=== PATIENT | male | born 1940 | race Caucasian/White ===

== ENCOUNTER 2018-01-23 08:03 | Day surgery (SDC) | payer MEDICARE, BC ==
[~2018-01-23 08:03] MED LIST: Lactated Ringers 1,000 ML IV SCH; Sodium Chloride 0.9% 10 ML Syringe FLUSH PRN; Sodium Chloride 0.9% 2.5 ML Syringe FLUSH PRN; ceFAZolin 1 GM in Premix Bag 1 BAG IV ONE
[2018-01-23] MEDS ORDERED: fentaNYL 100 MCG/2 ML SDV ONE (08:25)
[2018-01-23] MEDS ORDERED: Midazolam 1 MG/ML 2 ML SDV ONE (08:25)
[2018-01-23] MEDS ORDERED: Propofol 200 MG/20 ML SDV ONE (08:25)
--- NOTE | 2018-01-23 08:50 | PCM.PREANE ---
Preanesthetic Assessment - Anesthesia/Transfusion/Family Hx Anesthesia History: Prior Anesthesia Without Reaction Family History of Anesthesia Reaction: No Transfusion History: No Prior Transfusion(s) Intubation History: Unknown - Review of Systems General: No Symptoms Pulmonary: No Symptoms, Other (hoarsness, minimal stridor) Cardiovascular: No Symptoms Gastrointestinal: No Symptoms Neurological: No Symptoms Other: Reports: None - Physical Assessment NPO Status Date: 01/22/18 NPO Status Time: 22:00 O2 Sat by Pulse Oximetry: 97 Respiratory Rate: 12 Vital Signs: Last Vital Signs Temp Pulse 72 01/23/18 08:15 Resp 12 01/23/18 08:15 BP 167/76 H 01/23/18 08:15 Pulse Ox 97 01/23/18 08:15 Height: 1.78 m Weight: 63.957 kg ASA Class: 3 Mental Status: Alert & Oriented x3 Airway Class: Mallampati = 2 Dentition: Reports: Dentures (dentures) Thyro-Mental Finger Breadths: 3 Mouth Opening Finger Breadths: 2 ROM/Head Extension: Limited/Partial Lungs: Clear to Auscultation, Normal Respiratory Effort Cardiovascular: Regular Rate, Regular Rhythm - Allergies Allergies/Adverse Reactions: Allergies Allergy/AdvReac Type Severity Reaction Status Date / Time methylprednisolone Allergy Rash Verified 01/17/18 13:53 - Blood Blood Available: No - Anesthesia Plan Pre-Op Medication Ordered: None - Acknowledgements Anesthesia Type Planned: MAC Pt an Appropriate Candidate for the Planned Anesthesia: Yes Alternatives and Risks of Anesthesia Discussed w Pt/Guardian: Yes Pt/Guardian Understands and Agrees with Anesthesia Plan: Yes PreAnesthesia Questionnaire HEENT History: Other HEENT History: top denture Cardiovascular History: Reports: None Respiratory History: Reports: None Other Respiratory History: hoarse voice Gastrointestinal History: Reports: Other (See Below) (Peg tube in place) Other Gastrointestinal History: acid reflux Genitourinary History: Reports: BPH Musculoskeletal History: Reports: None Neurological History: Reports: None Psychiatric History: Reports: None Endocrine/Metabolic History: Reports: None Hematologic History: Reports: None Immunologic History: Reports: None Oncologic (Cancer) History: Reports: Squamous Cell Carcinoma, Other (See Below) Other Oncologic History: laryngeal cancer, s/p excision of vocal cord lesion, chemo and radiation therapy, as well as tracheostomy (stoma removed 6 weeks ago - not healed yed) Dermatologic History: Reports: None - Infectious Disease History Infectious Disease History: Reports: Measles - Past Surgical History Head Surgeries/Procedures: Reports: None Other HEENT Surgeries/Procedures: hx of insertion of tracheostomy tube for laryngeal cancer Cardiovascular Surgical History: Reports: Other (See Below) Other Cardiovascular Surgeries/Procedures: insertion of right Port-a-Cath - SUBSTANCE USE Smoking Status *Q: Never Smoker Tobacco Use Within Last Twelve Months: No Second Hand Smoke Exposure: No Recreational Drug Use History: No - HOME MEDS Home Medications: Home Meds . [No Known Home Meds] 01/17/18 [History] - CURRENT (IN HOUSE) MEDS Current Meds: Current Medications Lactated Ringer's (Ringers, Lactated) 1,000 mls @ 125 mls/hr IV ASDIRECTED CORINA Last Admin: 01/23/18 08:28 Dose: 125 mls/hr Sodium Chloride (Saline Flush) 10 ml FLUSH ASDIRECTED PRN PRN Reason: Keep Vein Open Sodium Chloride (Saline Flush) 2.5 ml FLUSH ASDIRECTED PRN PRN Reason: Keep Vein Open Discontinued Medications Fentanyl (Sublimaze) Confirm Administered Dose 100 mcg .ROUTE .STK-MED ONE Stop: 01/23/18 08:26 Cefazolin Sodium/Dextrose 1 gm (/ Premix) 50 mls @ 100 mls/hr IV ONETIME ONE Stop: 01/22/18 17:08 Cefazolin Sodium/Dextrose (Ancef) Confirm Administered Dose 50 mls @ as directed .ROUTE .STK-MED ONE Stop: 01/23/18 08:27 Lidocaine HCl (Xylocaine-Mpf 1%) Confirm Administered Dose 5 ml .ROUTE .STK-MED ONE Stop: 01/23/18 08:27 Midazolam HCl (Versed 1 Mg/Ml) Confirm Administered Dose 2 mg .ROUTE .STK-MED ONE Stop: 01/23/18 08:26 Propofol (Diprivan 20 Ml) Confirm Administered Dose 200 mg .ROUTE .STK-MED ONE Stop: 01/23/18 08:26
[2018-01-23] MEDS ORDERED: Lidocaine 1% 20 ML MDV ONE (11:15)
[2018-01-23] MEDS ORDERED: Bupivacaine 0.5% 10 ML SDV ONE (11:17)
--- NOTE | 2018-01-23 11:52 | PCM.OPNOTE ---
- General Post-Op/Procedure Note Date of Surgery/Procedure: 01/23/18 Operative Procedure(s): Removal right port a cath, removal feeding tube Findings: Right intact port, feeding tube intact Pre Op Diagnosis: Removal port, feeding tube Post-Op Diagnosis: same Anesthesia Technique: MAC Primary Surgeon: Stephany Foreman Condition: Good
--- NOTE | 2018-01-23 12:39 | PCM48HPAN ---
Post Anesthesia Note - EVALUATION WITHIN 48HRS OF ANESTHETIC Vital Signs in Normal Range: Yes Patient Participated in Evaluation: Yes Respiratory Function Stable: Yes Airway Patent: Yes Cardiovascular Function Stable: Yes Hydration Status Stable: Yes Pain Control Satisfactory: Yes Nausea and Vomiting Control Satisfactory: Yes Mental Status Recovered: Yes Resp Rate: 10 - COMMENTS/OBSERVATIONS Free Text/Narrative:: no anesthesia problems
[2018-01-23 13:46] VITALS: BP 165/76
--- NOTE | 2018-01-23 20:26 | OR ---
SURGEON: CHESTER MOTTA MD DATE OF PROCEDURE: 01/23/2018 PREOPERATIVE DIAGNOSIS: Squamous cell cancer of the head and neck. POSTOPERATIVE DIAGNOSIS: Squamous cell cancer of the head and neck. PROCEDURE PERFORMED: Removal of Port-A-Cath and percutaneous endoscopically placed gastrostomy tube. ANESTHESIA: MAC. FLUIDS: See anesthesia record. ESTIMATED BLOOD LOSS: 5 mL. FINDINGS: Intact right IJ Port-A-Cath and gastrostomy tube. COMPLICATIONS: None. INDICATIONS: The patient is a 77-year-old gentleman, who I previously placed a Port-A-Cath and feeding tube in. He has done with this treatments and would now like to have his Port-A-Cath and feeding tube removed. The patient and I discussed the procedure as well as expected perioperative course. We discussed the risks including bleeding, infection, or damage to surrounding structures. The patient verbalized understanding and wishes to proceed. PROCEDURE IN DETAIL: The patient was brought into the OR, placed on the OR table in supine position. A time-out was completed verifying the patient's name, age, date of , allergies, and procedure to be performed. Monitored anesthesia care was induced. The chest and abdomen were prepped and draped in the usual standard fashion. I anesthetized the skin overlying the right anterior chest Port-A-Cath device with 1% lidocaine plain. A #15 blade was used to open up his previous incision. I used cautery to dissect down to the level of the Port-A-Cath. The port was surrounded in a dense scar capsule. This was taken down with a combination of cautery and sharp dissection with Metzenbaum scissors. There were 3 sutures that were holding this catheter in place. These were sharply incised. Once all the scar tissue had been taken down, gentle pressure was applied to the catheter and it came out without difficulty. It was inspected and found to be intact. Hemostasis in the wound was achieved using cautery. The wound was then closed with interrupted 3-0 Vicryl sutures in the subcutaneous fat layer and a running 4-0 Monocryl stitch in the subcuticular space. Steri-Strips and sterile dressings were applied. I then turned my attention to the feeding tube site. Gentle pressure was applied to the feeding tube and it was pulled out through the abdominal wall. Vaseline gauze and a dressing were applied. The patient tolerated the procedure well and was taken to PACU in stable condition. SPRING / DEREK /[id number]
== END 2018-01-23 12:55 | disposition home or self-care (01) ==
LOC: MW.SDS 08:03
PROVIDERS: ATTEND Surgery
DX: Z45.2 Encounter for adjustment and management of vascular access device (principal); N40.0 Benign prostatic hyperplasia without lower urinary tract symptoms; K21.9 Gastro-esophageal reflux disease without esophagitis; Z85.21 Personal history of malignant neoplasm of larynx; Z92.21 Personal history of antineoplastic chemotherapy; Z92.3 Personal history of irradiation; Z88.8 Allergy status to other drugs, medicaments and biological substances; Z88.5 Allergy status to narcotic agent; Z80.8 Family history of malignant neoplasm of other organs or systems; Z82.3 Family history of stroke; Z98.890 Other specified postprocedural states
CPT/HCPCS: 36590; J0690; J2250; J3010; J7120; 00400; 88300; J2704

== ENCOUNTER 2021-10-06 12:39 | Inpatient (IN) | payer MEDICARE, BC ==
[2021-10-06] MEDS ORDERED: Sodium Chloride 0.9% 2.5 ML Syringe FLUSH PRN (12:46)
[2021-10-06] MEDS ORDERED: Sodium Chloride 0.9% 10 ML Syringe FLUSH PRN (12:46)
[2021-10-06] MEDS ORDERED: Sodium Chloride 0.9% 1,000 ML IV ONE ×3 (12:48→14:12)
--- NOTE | 2021-10-06 12:50 | EDM.PDOC ---
ED HPI GENERAL MEDICAL PROBLEM - General Stated Complaint: FELL Time Seen by Provider: 10/06/21 12:46 - History of Present Illness INITIAL COMMENTS - FREE TEXT/NARRATIVE: History of present illness: [] The historian is the son. The son is from [place] and came to see the father for the first time in 2 weeks today and found him on the bathroom floor with blood on the floor and some bleeding from his left forehead. 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 His [id number] used to check in on him but 2 weeks ago they had a and the son says this patient was at the and the son attended by remote telemetry conference. The son has not seen or heard from the father since. The patient can remember that he was on the bathroom floor but he is unsure when he fell or how he got there. The son says the patient is responsible for taking care of himself. Usually ambulates. He has not driven for quite some time. Review of systems: As per history of present illness and below otherwise all systems reviewed and negative. Past medical history: As per history of present illness and as reviewed below otherwise noncontributory. Surgical history: As per history of present illness and as reviewed below otherwise noncontributory. Social history: No reported history of drug or alcohol abuse. Family history: As per history of present illness and as reviewed below otherwise noncontributory. Physical exam: Constitutional - well developed, well-nourished and in no acute distress HEENT - normocephalic, swelling right eyelid. Abrasion left forehead. Multiple small abrasions and contusions about the head.- external nose and mouth normal - no mass in neck and no JVD - mucosae moist EYES - full EOM, PERRL, no icterus - no evidence of inflammation, injection, or drainage Respiratory - no respiratory distress, equal bilateral expansion, lungs clear to auscultation and no abnormal lung sounds Cardiovascular - Regular Rhythm with S1 and S2 appreciated and no murmur, gallop or rub. GI - abdomen soft without distension or organomegaly - normal bowel sounds - no guard or rebound Musculoskeletal no gross deformity of long bones or joints - no tenderness, swelling or edema Neurologic - Alert and disoriented- CN II-XII grossly intact - motor sensory and coordination symmetrical but movements are slow and weak. Psychiatric - appropriate mood and affect with normal thought content Hematologic - No petechiae or purpura - mucosa appropriate color and sclera not pale - normal nail bed color and refill Integument -skin turgor normal. Deep decubitus ulcer 3 x 2 cm on the left ischial tuberosity area which does not appear infected. Multiple bruises about the extremities. Diagnostics: [] Therapeutics: [] Impression: [] Plan: [] Definitive disposition and diagnosis as appropriate pending reevaluation and review of above. - Related Data Allergies Allergy/AdvReac Type Severity Reaction Status Date / Time methylprednisolone Allergy Rash Verified 10/06/21 13:39 Home Meds: Home Meds Dicyclomine [Bentyl] 10 mg PO DAILY 10/06/21 [History] Levothyroxine Sodium [Levothyroxine] 75 mcg PO DAILY 10/06/21 [History] Tamsulosin HCl 0.4 mg PO DAILY 10/06/21 [History] Past Medical History HEENT History: Reports: Other (See Below) Other HEENT History: wears glasses, has upper denture Cardiovascular History: Reports: None Respiratory History: Reports: None Other Respiratory History: hoarse voice Gastrointestinal History: Reports: Other (See Below) (Peg tube in place) Other Gastrointestinal History: acid reflux Genitourinary History: Reports: Renal Calculus Other Genitourinary History: currently has multiple stones Musculoskeletal History: Reports: None Neurological History: Reports: None Psychiatric History: Reports: None Endocrine/Metabolic History: Reports: None Hematologic History: Reports: None Immunologic History: Reports: None Oncologic (Cancer) History: Reports: Other (See Below) Other Oncologic History: 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 Dermatologic History: Reports: None - Infectious Disease History Infectious Disease History: Reports: Measles - Past Surgical History Cardiovascular Surgical History: Reports: Other (See Below) Other Cardiovascular Surgeries/Procedures: hx of throat cancer- had port-a-cath placed and removed Respiratory Surgical History: Reports: Tracheostomy Other Respiratory Surgeries/Procedures: hx of throat cancer- trach has been removed GI Surgical History: Reports: Other (See Below) Other GI Surgeries/Procedures: hx of PEG tube insertion- has been removed Social & Family History - Family History Family Medical History: No Pertinent Family History ED ROS GENERAL - Review of Systems Review Of Systems: Comprehensive ROS is negative, except as noted in HPI. ED EXAM, GENERAL - Physical Exam Exam: See Below Free Text/Narrative:: My physical exam is in the HPI #1 Interpretation EKG Interpretation Comments: KG done 10/06/2021 at 12:56 PM shows sinus rhythm heart rate 94 IA was 136 QT duration 461 axis -60 probable left atrial enlargement left axis deviation QRS ST and T are otherwise unremarkable no prior for comparison impression no acute injury Course - Vital Signs Text/Narrative:: This patient was seen and evaluated during the 2019 SARS-CoV-2 novel coronavirus pandemic period. Community viral transmission is ongoing at time of this encounter and the emergency department is operating under pandemic response procedures. Due to a high probability of clinically significant, life threatening deterioration, the patient required my highest level of preparedness to intervene emergently and I personally spent this critical care time directly and personally managing the patient. This critical care time included obtaining a history; examining the patient; pulse oximetry; ordering and review of studies; arranging urgent treatment with development of a management plan; evaluation of patient's response to treatment; frequent reassessment; and, discussions with other providers. This critical care time was performed to assess and manage the high probability of imminent, life-threatening deterioration that could result in multi-organ failure. It was exclusive of separately billable procedures and treating other patients and teaching time. 45 minutes Last Recorded V/S: Last Vital Signs Temp 37.3 C 10/06/21 12:39 Pulse 92 10/06/21 15:30 Resp 20 10/06/21 12:39 BP 113/65 10/06/21 14:46 Pulse Ox 96 10/06/21 15:30 - Orders/Labs/Meds Orders: Active Orders 24 hr Category Date Time Status Cardiac Monitoring [RC] . DIRECTED Care 10/06/21 12:46 Active Larson Catheter Insertion [Insert Urinary Catheter] [OM. Care 10/06/21 14:45 Ordered PC] Q24H Intake and Output Strict [RC] ASDIRECTED Care 10/06/21 14:36 Active Pulse Oximetry [RC] ASDIRECTED Care 10/06/21 12:46 Active Urinary Catheter Assessment [RC] ASDIRECTED Care 10/06/21 14:36 Active CULTURE BLOOD [BC] Stat Lab 10/06/21 13:01 Results CULTURE BLOOD [BC] Stat Lab 10/06/21 13:10 Results CULTURE URINE [MREF] Stat Lab 10/06/21 14:50 Received Sodium Chloride 0.9% [Saline Flush] Med 10/06/21 12:46 Active 10 ml FLUSH ASDIRECTED PRN Sodium Chloride 0.9% [Saline Flush] Med 10/06/21 12:46 Active 2.5 ml FLUSH ASDIRECTED PRN Blood Culture x2 Reflex Set [OM.PC] Stat Oth 10/06/21 12:47 Ordered Saline Lock Insert [OM.PC] Stat Ot 10/06/21 12:46 Ordered Medication Orders Sodium Chloride (Sodium Chloride 0.9% 10 Ml Syringe) 10 ml FLUSH ASDIRECTED PRN PRN Reason: Keep Vein Open Last Admin: 10/06/21 13:50 Dose: 10 ml Documented by: DAVON Sodium Chloride (Sodium Chloride 0.9% 2.5 Ml Syringe) 2.5 ml FLUSH ASDIRECTED PRN PRN Reason: Keep Vein Open Last Admin: 10/06/21 13:51 Dose: 2.5 ml Documented by: DAVON Labs: Laboratory Tests 10/06/21 10/06/21 10/06/21 Range/Units 13:01 13:01 13:01 WBC 16.62 H (4.0-11.0) K/uL RBC 4.69 (4.50-5.90) M/uL Hgb 14.5 (13.0-17.0) g/dL Hct 43.4 (38.0-50.0) % MCV 92.5 (80.0-98.0) fL MCH 30.9 (27.0-32.0) pg MCHC 33.4 (31.0-37.0) g/dL RDW Std Deviation 46.2 (28.0-62.0) fl RDW Coeff of [place]aren[place] 14 (11.0-15.0) % Plt Count 241 (150-400) K/uL MPV 9.20 (7.40-12.00) fL Neut % (Auto) 89.9 H (48.0-80.0) % Lymph % (Auto) 2.3 L (16.0-40.0) % [place] % (Auto) 7.7 (0.0-15.0) % Eos % (Auto) 0.0 (0.0-7.0) % Baso % (Auto) 0.1 (0.0-1.5) % Neut # (Auto) 14.9 H (1.4-5.7) K/uL Lymph # (Auto) 0.4 L (0.6-2.4) K/uL [place] # (Auto) 1.3 H (0.0-0.8) K/uL Eos # (Auto) 0.0 (0.0-0.7) K/uL Baso # (Auto) 0.0 (0.0-0.1) K/uL Nucleated RBC % 0.0 /100WBC Nucleated RBCs # 0 K/uL ESR (0-19) mm/hr INR Sodium 144 (136-148) mmol/L Potassium 4.7 (3.5-5.1) mmol/L Chloride 104 (98-107) mmol/L Carbon Dioxide 24.0 (21.0-32.0) mmol/L BUN 67 H (7.0-18.0) mg/dL Creatinine 1.8 H (0.8-1.3) mg/dL Est Cr Clr Drug Dosing TNP Estimated GFR (MDRD) 36.4 ml/min Glucose 116 H (74-106) mg/dL Lactic Acid 3.1 H* (0.4-2.0) mmol/L Calcium 9.7 (8.5-10.1) mg/dL Magnesium 2.4 (1.8-2.4) mg/dL Total Bilirubin 0.9 (0.2-1.0) mg/dL AST 249 H (15-37) IU/L ALT 76 H (14-63) IU/L Alkaline Phosphatase 76 (46-116) U/L Creatine Kinase 5560 H (26-308) U/L Troponin I 0.087 H* (0.000-0.056) ng/mL B-Natriuretic Peptide (<100) PG/ML Total Protein 7.2 (6.4-8.2) g/dL Albumin 3.2 L (3.4-5.0) g/dL Globulin 4.0 (2.6-4.0) g/dL Albumin/Globulin Ratio 0.8 L (0.9-1.6) Lipase 32 L (73-393) U/L TSH, Ultra Sensitive 9.13 H (0.36-3.74) uIU/mL Urine Color Urine Appearance Urine pH (5.0-8.0) Ur Specific [place] (1.001-1.035) Urine Protein (NEGATIVE) mg/dL Urine Glucose (UA) (NEGATIVE) mg/dL Urine Ketones (NEGATIVE) mg/dL Urine Occult Blood (NEGATIVE) Urine Nitrite (NEGATIVE) Urine Bilirubin (NEGATIVE) Urine Urobilinogen (<2.0) EU/dL Ur Leukocyte Esterase (NEGATIVE) Urine RBC (0-2/HPF) Urine WBC (0-5/HPF) Ur Epithelial Cells (NONE-FEW) Calcium Oxalate Crystal (NEGATIVE) Urine Bacteria (NEGATIVE) SARS-CoV-2 RNA (MERI) (NEGATIVE) 10/06/21 10/06/21 10/06/21 Range/Units 13:01 13:01 13:01 WBC (4.0-11.0) K/uL RBC (4.50-5.90) M/uL Hgb (13.0-17.0) g/dL Hct (38.0-50.0) % MCV (80.0-98.0) fL MCH (27.0-32.0) pg MCHC (31.0-37.0) g/dL RDW Std Deviation (28.0-62.0) fl RDW Coeff of [place] (11.0-15.0) % Plt Count (150-400) K/uL MPV (7.40-12.00) fL Neut % (Auto) (48.0-80.0) % Lymph % (Auto) (16.0-40.0) % [place] % (Auto) (0.0-15.0) % Eos % (Auto) (0.0-7.0) % Baso % (Auto) (0.0-1.5) % Neut # (Auto) (1.4-5.7) K/uL Lymph # (Auto) (0.6-2.4) K/uL [place] # (Auto) (0.0-0.8) K/uL Eos # (Auto) (0.0-0.7) K/uL Baso # (Auto) (0.0-0.1) K/uL Nucleated RBC % /100WBC Nucleated RBCs # K/uL ESR 23 H (0-19) mm/hr INR 1.14 Sodium (136-148) mmol/L Potassium (3.5-5.1) mmol/L Chloride (98-107) mmol/L Carbon Dioxide (21.0-32.0) mmol/L BUN (7.0-18.0) mg/dL Creatinine (0.8-1.3) mg/dL Est Cr Clr Drug Dosing Estimated GFR (MDRD) ml/min Glucose (74-106) mg/dL Lactic Acid (0.4-2.0) mmol/L Calcium (8.5-10.1) mg/dL Magnesium (1.8-2.4) mg/dL Total Bilirubin (0.2-1.0) mg/dL AST (15-37) IU/L ALT (14-63) IU/L Alkaline Phosphatase (46-116) U/L Creatine Kinase (26-308) U/L Troponin I (0.000-0.056) ng/mL B-Natriuretic Peptide 53 (<100) PG/ML Total Protein (6.4-8.2) g/dL Albumin (3.4-5.0) g/dL Globulin (2.6-4.0) g/dL Albumin/Globulin Ratio (0.9-1.6) Lipase (73-393) U/L TSH, Ultra Sensitive (0.36-3.74) uIU/mL Urine Color Urine Appearance Urine pH (5.0-8.0) Ur Specific [place] (1.001-1.035) Urine Protein (NEGATIVE) mg/dL Urine Glucose (UA) (NEGATIVE) mg/dL Urine Ketones (NEGATIVE) mg/dL Urine Occult Blood (NEGATIVE) Urine Nitrite (NEGATIVE) Urine Bilirubin (NEGATIVE) Urine Urobilinogen (<2.0) EU/dL Ur Leukocyte Esterase (NEGATIVE) Urine RBC (0-2/HPF) Urine WBC (0-5/HPF) Ur Epithelial Cells (NONE-FEW) Calcium Oxalate Crystal (NEGATIVE) Urine Bacteria (NEGATIVE) SARS-CoV-2 RNA (MERI) (NEGATIVE) 10/06/21 10/06/21 10/06/21 Range/Units 14:45 14:50 15:45 WBC (4.0-11.0) K/uL RBC (4.50-5.90) M/uL Hgb (13.0-17.0) g/dL Hct (38.0-50.0) % MCV (80.0-98.0) fL MCH (27.0-32.0) pg MCHC (31.0-37.0) g/dL RDW Std Deviation (28.0-62.0) fl RDW Coeff of [place] (11.0-15.0) % Plt Count (150-400) K/uL MPV (7.40-12.00) fL Neut % (Auto) (48.0-80.0) % Lymph % (Auto) (16.0-40.0) % [place] % (Auto) (0.0-15.0) % Eos % (Auto) (0.0-7.0) % Baso % (Auto) (0.0-1.5) % Neut # (Auto) (1.4-5.7) K/uL Lymph # (Auto) (0.6-2.4) K/uL [place] # (Auto) (0.0-0.8) K/uL Eos # (Auto) (0.0-0.7) K/uL Baso # (Auto) (0.0-0.1) K/uL Nucleated RBC % /100WBC Nucleated RBCs # K/uL ESR (0-19) mm/hr INR Sodium (136-148) mmol/L Potassium (3.5-5.1) mmol/L Chloride (98-107) mmol/L Carbon Dioxide (21.0-32.0) mmol/L BUN (7.0-18.0) mg/dL Creatinine (0.8-1.3) mg/dL Est Cr Clr Drug Dosing Estimated GFR (MDRD) ml/min Glucose (74-106) mg/dL Lactic Acid (0.4-2.0) mmol/L Calcium (8.5-10.1) mg/dL Magnesium (1.8-2.4) mg/dL Total Bilirubin (0.2-1.0) mg/dL AST (15-37) IU/L ALT (14-63) IU/L Alkaline Phosphatase (46-116) U/L Creatine Kinase 5016 H (26-308) U/L Troponin I 0.099 H* (0.000-0.056) ng/mL B-Natriuretic Peptide (<100) PG/ML Total Protein (6.4-8.2) g/dL Albumin (3.4-5.0) g/dL Globulin (2.6-4.0) g/dL Albumin/Globulin Ratio (0.9-1.6) Lipase (73-393) U/L TSH, Ultra Sensitive (0.36-3.74) uIU/mL Urine Color YELLOW Urine Appearance CLOUDY Urine pH 7.5 (5.0-8.0) Ur Specific [place] 1.020 (1.001-1.035) Urine Protein 100 H (NEGATIVE) mg/dL Urine Glucose (UA) NEGATIVE (NEGATIVE) mg/dL Urine Ketones 15 H (NEGATIVE) mg/dL Urine Occult Blood MODERATE H (NEGATIVE) Urine Nitrite POSITIVE H (NEGATIVE) Urine Bilirubin NEGATIVE (NEGATIVE) Urine Urobilinogen 0.2 (<2.0) EU/dL Ur Leukocyte Esterase LARGE H (NEGATIVE) Urine RBC 10-15 (0-2/HPF) Urine WBC TO NUMEROUS TO COUNT H (0-5/HPF) Ur Epithelial Cells FEW (NONE-FEW) Calcium Oxalate Crystal MODERATE (NEGATIVE) Urine Bacteria 4+ H (NEGATIVE) SARS-CoV-2 RNA (MERI) NEGATIVE (NEGATIVE) 10/06/21 Range/Units 15:45 WBC (4.0-11.0) K/uL RBC (4.50-5.90) M/uL Hgb (13.0-17.0) g/dL Hct (38.0-50.0) % MCV (80.0-98.0) fL MCH (27.0-32.0) pg MCHC (31.0-37.0) g/dL RDW Std Deviation (28.0-62.0) fl RDW Coeff of [place] (11.0-15.0) % Plt Count (150-400) K/uL MPV (7.40-12.00) fL Neut % (Auto) (48.0-80.0) % Lymph % (Auto) (16.0-40.0) % [place] % (Auto) (0.0-15.0) % Eos % (Auto) (0.0-7.0) % Baso % (Auto) (0.0-1.5) % Neut # (Auto) (1.4-5.7) K/uL Lymph # (Auto) (0.6-2.4) K/uL [place] # (Auto) (0.0-0.8) K/uL Eos # (Auto) (0.0-0.7) K/uL Baso # (Auto) (0.0-0.1) K/uL Nucleated RBC % /100WBC Nucleated RBCs # K/uL ESR (0-19) mm/hr INR Sodium (136-148) mmol/L Potassium (3.5-5.1) mmol/L Chloride (98-107) mmol/L Carbon Dioxide (21.0-32.0) mmol/L BUN (7.0-18.0) mg/dL Creatinine (0.8-1.3) mg/dL Est Cr Clr Drug Dosing Estimated GFR (MDRD) ml/min Glucose (74-106) mg/dL Lactic Acid 2.3 H* (0.4-2.0) mmol/L Calcium (8.5-10.1) mg/dL Magnesium (1.8-2.4) mg/dL Total Bilirubin (0.2-1.0) mg/dL AST (15-37) IU/L ALT (14-63) IU/L Alkaline Phosphatase (46-116) U/L Creatine Kinase (26-308) U/L Troponin I (0.000-0.056) ng/mL B-Natriuretic Peptide (<100) PG/ML Total Protein (6.4-8.2) g/dL Albumin (3.4-5.0) g/dL Globulin (2.6-4.0) g/dL Albumin/Globulin Ratio (0.9-1.6) Lipase (73-393) U/L TSH, Ultra Sensitive (0.36-3.74) uIU/mL Urine Color Urine Appearance Urine pH (5.0-8.0) Ur Specific [place] (1.001-1.035) Urine Protein (NEGATIVE) mg/dL Urine Glucose (UA) (NEGATIVE) mg/dL Urine Ketones (NEGATIVE) mg/dL Urine Occult Blood (NEGATIVE) Urine Nitrite (NEGATIVE) Urine Bilirubin (NEGATIVE) Urine Urobilinogen (<2.0) EU/dL Ur Leukocyte Esterase (NEGATIVE) Urine RBC (0-2/HPF) Urine WBC (0-5/HPF) Ur Epithelial Cells (NONE-FEW) Calcium Oxalate Crystal (NEGATIVE) Urine Bacteria (NEGATIVE) SARS-CoV-2 RNA (MERI) (NEGATIVE) Meds: Medications Generic Name Dose Route Start Last Admin Trade Name Freq PRN Reason Stop Dose Admin Sodium Chloride 10 ml 10/06/21 12:46 10/06/21 13:50 Sodium Chloride 0.9% 10 Ml Syringe FLUSH 10 ml ASDIRECTED PRN Administration Keep Vein Open Sodium Chloride 2.5 ml 10/06/21 12:46 10/06/21 13:51 Sodium Chloride 0.9% 2.5 Ml Syringe FLUSH 2.5 ml ASDIRECTED PRN Administration Keep Vein Open Discontinued Medications Generic Name Dose Route Start Last Admin Trade Name Freq PRN Reason Stop Dose Admin Sodium Chloride 1,000 mls @ 1,000 mls/hr 10/06/21 12:48 10/06/21 13:50 Normal Saline IV 10/06/21 13:47 1,000 mls/hr .Bolus ONE Administration Ceftriaxone Sodium/Dextrose 1 50 mls @ 100 mls/hr 10/06/21 14:11 10/06/21 14:28 gm/ Premix IV 10/06/21 14:40 100 mls/hr ONETIME ONE Administration Sodium Chloride 1,000 mls @ 1,000 mls/hr 10/06/21 14:11 10/06/21 14:33 Normal Saline IV 10/06/21 15:10 1,000 mls/hr .Bolus ONE Administration Sodium Chloride 1,000 mls @ 500 mls/hr 10/06/21 14:12 10/06/21 14:29 Normal Saline IV 10/06/21 16:11 500 mls/hr BOLUS ONE Administration - Re-Assessments/Exams Free Text/Narrative Re-Assessment/Exam: 10/06/21 16:30 1 and went up in significantly and CPK came down a little bit. Lactate did come down substantially. Patient stable. Discussed with Dr. Hammonds and admitted. Departure - Departure Time of Disposition: 16:31 Disposition: Admitted As Inpatient 65 Condition: Fair Clinical Impression: Sepsis, Rhabdomyolysis, Dehydration UTI (urinary tract infection) Qualifiers: Urinary tract infection type: acute cystitis Hematuria presence: without hematuria Qualified Code(s): N30.00 - Acute cystitis without hematuria - Discharge Information Sepsis Event Note (ED) - Focused Exam Vital Signs: Vital Signs Temp Pulse Resp BP Pulse Ox 10/06/21 15:30 92 96 10/06/21 14:46 88 113/65 96 10/06/21 14:16 86 108/67 100 10/06/21 13:55 96 125/62 100 10/06/21 13:30 85 103/73 100 10/06/21 13:03 93 112/69 100 10/06/21 12:39 37.3 C 80 20 103/73 92 L - My Orders Last 24 Hours: My Active Orders 10/06/21 12:46 Cardiac Monitoring [RC] . DIRECTED Pulse Oximetry [RC] ASDIRECTED Sodium Chloride 0.9% [Saline Flush] 10 ml FLUSH ASDIRECTED PRN Sodium Chloride 0.9% [Saline Flush] 2.5 ml FLUSH ASDIRECTED PRN Saline Lock Insert [OM.PC] Stat 10/06/21 12:47 Blood Culture x2 Reflex Set [OM.PC] Stat 10/06/21 13:01 CULTURE BLOOD [BC] Stat 10/06/21 13:10 CULTURE BLOOD [BC] Stat 10/06/21 14:36 Intake and Output Strict [RC] ASDIRECTED Urinary Catheter Assessment [RC] ASDIRECTED 10/06/21 14:45 Larson Catheter Insertion [Insert Urinary Catheter] [OM.PC] Q24H 10/06/21 14:50 CULTURE URINE [MREF] Stat - Assessment/Plan Last 24 Hours: My Active Orders 10/06/21 12:46 Cardiac Monitoring [RC] . DIRECTED Pulse Oximetry [RC] ASDIRECTED Sodium Chloride 0.9% [Saline Flush] 10 ml FLUSH ASDIRECTED PRN Sodium Chloride 0.9% [Saline Flush] 2.5 ml FLUSH ASDIRECTED PRN Saline Lock Insert [OM.PC] Stat 10/06/21 12:47 Blood Culture x2 Reflex Set [OM.PC] Stat 10/06/21 13:01 CULTURE BLOOD [BC] Stat 10/06/21 13:10 CULTURE BLOOD [BC] Stat 10/06/21 14:36 Intake and Output Strict [RC] ASDIRECTED Urinary Catheter Assessment [RC] ASDIRECTED 10/06/21 14:45 Larson Catheter Insertion [Insert Urinary Catheter] [OM.PC] Q24H 10/06/21 14:50 CULTURE URINE [MREF] Stat
--- NOTE | 2021-10-06 13:36 | CR ---
INDICATION: Trauma. TECHNIQUE: Chest single view supine portable. IMPRESSION: The chest is rotated. The heart is normal in size. The lungs are clear. No definite pneumothorax or pleural fluid. Dictated by South Sinclair MD @ 10/06/2021 1:35:13 PM (Electronically Signed)
--- NOTE | 2021-10-06 13:38 | CR ---
INDICATION: Fall. TECHNIQUE: Pelvis supine portable. IMPRESSION: The bones are demineralized. No signs of acute fracture. Rounded areas of radiodensity in the midline pelvis. This could represent stones within the urinary bladder there is a dense surrounded possible stone or calcification projecting over the right kidney. Symmetric joint space narrowing in the hips. Dictated by South Sinclair MD @ 10/06/2021 1:37:12 PM (Electronically Signed)
[2021-10-06 14:02] LABS: BLOOD UREA NITROGEN,BUN 67 mg/dL (7.0-18.0); CHLORIDE,CL 104 mmol/L (98-107); GLUCOSE RANDOM 116 mg/dL (74-106); LIPASE 32 U/L (73-393); POTASSIUM,K 4.7 mmol/L (3.5-5.1); SODIUM,NA 144 mmol/L (136-148)
[2021-10-06] MEDS ORDERED: cefTRIAXone 1 GM in Premix Bag 1 BAG IV ONE (14:11)
--- NOTE | 2021-10-06 14:14 | CT ---
Indication: Fall, found on bathroom floor Technique: Nonenhanced axial CT imaging through the cervical spine. Sagittal and coronal reconstructions are provided. Comparison: None Findings: The cervical vertebral bodies are normal in height. There is no evidence of acute fracture. There is no prevertebral edema. The atlantoaxial and atlantooccipital relationships are maintained. Multilevel degenerative changes are noted. There is mild degenerative anterolisthesis at C7-T1. There is no appreciable spinal stenosis. Neural foraminal stenosis is present at multiple levels. Impression: 1. No acute fracture or traumatic malalignment. 2. Degenerative changes, as above. Please note that all CT scans at this facility use dose modulation, iterative reconstruction, and/or weight-based dosing when appropriate to reduce radiation dose to as low as reasonably achievable. Dictated by Mariama Perla MD @ 10/06/2021 2:11:43 PM (Electronically Signed)
--- NOTE | 2021-10-06 14:24 | CT ---
Indication: Fall, found on bathroom floor Technique: Nonenhanced axial CT images through the face. Sagittal and coronal reconstructions are provided. Comparison: None Findings: There is bilateral facial subcutaneous edema. There is no evidence of underlying facial fracture. The paranasal sinuses and right mastoid air cells are clear. The left mastoid air cells and epitympanum are opacified. The orbital contents are normal. The visualized skullbase is intact. Dental caries and periodontal disease are noted involving the remaining mandibular teeth. The maxilla is edentulous. Impression: 1. No acute facial fracture. 2. Bilateral subcutaneous facial edema. Correlate clinically. 3. Opacification of the left mastoid air cells and epitympanum. Correlate clinically to exclude otomastoiditis. 4. Dental caries and periodontal disease involving the remaining mandibular teeth. Please note that all CT scans at this facility use dose modulation, iterative reconstruction, and/or weight-based dosing when appropriate to reduce radiation dose to as low as reasonably achievable. Dictated by Mariama Perla MD @ 10/06/2021 2:23:56 PM (Electronically Signed)
--- NOTE | 2021-10-06 14:28 | CT ---
Indication: Fall, found on bathroom floor Technique: Nonenhanced axial CT imaging through the head. Sagittal and coronal reconstructions are provided. Comparison: None Findings: There is no evidence of intracranial hemorrhage or cerebral edema. Roa-white matter differentiation is preserved. The ventricles are normal in size. The basal cisterns are patent. The calvarium is intact. Edema is noted in the left frontal, temporal, and parietal scalp. Impression: 1. Edema of the left frontal, temporal, and parietal scalp. Correlate clinically. 2. No evidence of calvarial fracture, intracranial hemorrhage, or brain contusion. Please note that all CT scans at this facility use dose modulation, iterative reconstruction, and/or weight-based dosing when appropriate to reduce radiation dose to as low as reasonably achievable. Dictated by Mariama Perla MD @ 10/06/2021 2:28:03 PM (Electronically Signed)
--- NOTE | 2021-10-06 14:41 | CT ---
Indication: Fall, found on bathroom floor Technique: Nonenhanced axial CT imaging through the abdomen and pelvis. Sagittal and coronal reconstructions are provided. Comparison: None Findings: Unremarkable noncontrast appearance of the liver, spleen, adrenal glands, and pancreas. Multiple hyperdense stones in the gallbladder. No appreciable gallbladder wall thickening. Multiple bilateral renal cortical cysts, including small hyperdense cysts in the left kidney. No nephrolithiasis. Urinary wall thickening and trabeculation, suggesting neurogenic bladder. Three oval stones residing in the posterior aspect of the bladder, largest measuring 2.2 x 1.0 cm. Normal caliber abdominal aorta. No appreciable lymphadenopathy. No evidence of retroperitoneal or intraperitoneal hemorrhage. Unremarkable stomach. Normal caliber wall small bowel. No appreciable colonic wall thickening or mesenteric edema. Moderate distention of the rectum with stool, suggesting constipation. No evidence of acute pelvic fracture or lumbar spine fracture. Multilevel lumbar degenerative disc disease noted. Impression: 1. No acute traumatic findings demonstrated in the abdomen and pelvis. 2. Gallbladder wall thickening and trabeculation, suggesting neurogenic bladder. Correlate clinically. 3. Moderate rectal distention with stool, suggesting constipation. 4. Multiple urinary bladder stones, as above. 5. Cholelithiasis. Please note that all CT scans at this facility use dose modulation, iterative reconstruction, and/or weight-based dosing when appropriate to reduce radiation dose to as low as reasonably achievable. Dictated by Mariama Perla MD @ 10/06/2021 2:40:10 PM (Electronically Signed)
--- NOTE | 2021-10-06 19:17 | PCM.HP.2 ---
H&P History of Present Illness - General Date of Service: 10/06/21 Admit Problem/Dx: Admission Diagnosis/Problem Admission Diagnosis/Problem Dehydration - History of Present Illness Initial Comments - Free Text/Narative: 80 yo male with pmh of CKD, hypothyrodism, BPH who was found down at home. Family had last spoken to him on Saturday all appeared well. Son from [place] came to visit and found him lying on the bathroom floor with only a shirt and urine in the toliet and bed unmade. Patient does not know how long he had been laying on the floor and is a poor historian. He is somewhat disoriented only kn owing the name of the town and does not always answer appropriately. He appears disheveled and has multiple abrassion of different ages on his arms and legs. Two sons are at bedside. He denies any pain, shortness of breath, or chest pain. Family believes there may be some cognitive impairment but nothing severe - Related Data Allergies/Adverse Reactions: Allergies Allergy/AdvReac Type Severity Reaction Status Date / Time methylprednisolone Allergy Rash Verified 10/06/21 18:06 Home Medications: Home Meds Dicyclomine [Bentyl] 10 mg PO DAILY 10/06/21 [History] Levothyroxine Sodium [Levothyroxine] 75 mcg PO DAILY 10/06/21 [History] Tamsulosin HCl 0.4 mg PO DAILY 10/06/21 [History] Past Medical History HEENT History: Reports: Other (See Below) Other HEENT History: wears glasses, has upper denture Cardiovascular History: Reports: None Respiratory History: Reports: None Other Respiratory History: hoarse voice Gastrointestinal History: Reports: Other (See Below) Other Gastrointestinal History: acid reflux Genitourinary History: Reports: Renal Calculus Other Genitourinary History: currently has multiple stones Musculoskeletal History: Reports: None Neurological History: Reports: None Psychiatric History: Reports: None Endocrine/Metabolic History: Reports: None Hematologic History: Reports: None Immunologic History: Reports: None Oncologic (Cancer) History: Reports: Other (See Below) Other Oncologic History: 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 Dermatologic History: Reports: None - Infectious Disease History Infectious Disease History: Reports: Measles - Past Surgical History Head Surgeries/Procedures: Reports: None Other HEENT Surgeries/Procedures: hx of insertion of tracheostomy tube for l aryngeal cancer Cardiovascular Surgical History: Reports: Other (See Below) Other Cardiovascular Surgeries/Procedures: hx of throat cancer- had port-a-cath placed and removed Respiratory Surgical History: Reports: Tracheostomy Other Respiratory Surgeries/Procedures: hx of throat cancer- trach has been removed GI Surgical History: Reports: Other (See Below) Other GI Surgeries/Procedures: hx of PEG tube insertion- has been removed Social & Family History - Family History Family Medical History: No Pertinent Family History - Tobacco Use Tobacco Use Status *Q: Never Tobacco User Second Hand Smoke Exposure: No - Caffeine Use Caffeine Use: Reports: None Caffeine Use Comment: pt unable to answer - Recreational Drug Use Recreational Drug Use: No H&P Review of Systems - Review of Systems: Review Of Systems: Comprehensive ROS is negative, except as noted in HPI. Exam - Exam Exam: See Below - Vital Signs Vital Signs: Last Vital Signs Temp 37.3 C 10/06/21 12:39 Pulse 97 10/06/21 17:20 Resp 20 10/06/21 12:39 BP 110/54 L 10/06/21 16:24 Pulse Ox 100 10/06/21 17:20 Weight: 47.627 kg - Exam General: Alert, Oriented (to town and person only) Neck: Supple Lungs: Clear to Auscultation, Normal Respiratory Effort Cardiovascular: Regular Rate, Regular Rhythm GI/Abdominal Exam: Normal Bowel Sounds, Soft, Non-Tender, No Distention Extremities: Normal Inspection, Normal Range of Motion, Non-Tender, No Pedal Edema Skin: Warm, Dry, Rash (dry scaly rash on abdomen), Other (multiple abrasions on arms and legs of different ages) - Patient Data Lab Results Last 24 hrs: Laboratory Results - last 24 hr 10/06/21 10/06/21 10/06/21 Range/Units 13:01 13:01 13:01 WBC 16.62 H (4.0-11.0) K/uL RBC 4.69 (4.50-5.90) M/uL Hgb 14.5 (13.0-17.0) g/dL Hct 43.4 (38.0-50.0) % MCV 92.5 (80.0-98.0) fL MCH 30.9 (27.0-32.0) pg MCHC 33.4 (31.0-37.0) g/dL RDW Std Deviation 46.2 (28.0-62.0) fl RDW Coeff of [place] 14 (11.0-15.0) % Plt Count 241 (150-400) K/uL MPV 9.20 (7.40-12.00) fL Neut % (Auto) 89.9 H (48.0-80.0) % Lymph % (Auto) 2.3 L (16.0-40.0) % [place] % (Auto) 7.7 (0.0-15.0) % Eos % (Auto) 0.0 (0.0-7.0) % Baso % (Auto) 0.1 (0.0-1.5) % Neut # (Auto) 14.9 H (1.4-5.7) K/uL Lymph # (Auto) 0.4 L (0.6-2.4) K/uL [place] # (Auto) 1.3 H (0.0-0.8) K/uL Eos # (Auto) 0.0 (0.0-0.7) K/uL Baso # (Auto) 0.0 (0.0-0.1) K/uL Nucleated RBC % 0.0 /100WBC Nucleated RBCs # 0 K/uL ESR (0-19) mm/hr INR Sodium 144 (136-148) mmol/L Potassium 4.7 (3.5-5.1) mmol/L Chloride 104 (98-107) mmol/L Carbon Dioxide 24.0 (21.0-32.0) mmol/L BUN 67 H (7.0-18.0) mg/dL Creatinine 1.8 H (0.8-1.3) mg/dL Est Cr Clr Drug Dosing TNP Estimated GFR (MDRD) 36.4 ml/min Glucose 116 H (74-106) mg/dL Lactic Acid 3.1 H* (0.4-2.0) mmol/L Calcium 9.7 (8.5-10.1) mg/dL Magnesium 2.4 (1.8-2.4) mg/dL Total Bilirubin 0.9 (0.2-1.0) mg/dL AST 249 H (15-37) IU/L ALT 76 H (14-63) IU/L Alkaline Phosphatase 76 (46-116) U/L Creatine Kinase 5560 H (26-308) U/L Troponin I 0.087 H* (0.000-0.056) ng/mL B-Natriuretic Peptide (<100) PG/ML Total Protein 7.2 (6.4-8.2) g/dL Albumin 3.2 L (3.4-5.0) g/dL Globulin 4.0 (2.6-4.0) g/dL Albumin/Globulin Ratio 0.8 L (0.9-1.6) Lipase 32 L (73-393) U/L TSH, Ultra Sensitive 9.13 H (0.36-3.74) uIU/mL Urine Color Urine Appearance Urine pH (5.0-8.0) Ur Specific [place] (1.001-1.035) Urine Protein (NEGATIVE) mg/dL Urine Glucose (UA) (NEGATIVE) mg/dL Urine Ketones (NEGATIVE) mg/dL Urine Occult Blood (NEGATIVE) Urine Nitrite (NEGATIVE) Urine Bilirubin (NEGATIVE) Urine Urobilinogen (<2.0) EU/dL Ur Leukocyte Esterase (NEGATIVE) Urine RBC (0-2/HPF) Urine WBC (0-5/HPF) Ur Epithelial Cells (NONE-FEW) Calcium Oxalate Crystal (NEGATIVE) Urine Bacteria (NEGATIVE) SARS-CoV-2 RNA (MERI) (NEGATIVE) 10/06/21 10/06/21 10/06/21 Range/Units 13:01 13:01 13:01 WBC (4.0-11.0) K/uL RBC (4.50-5.90) M/uL Hgb (13.0-17.0) g/dL Hct (38.0-50.0) % MCV (80.0-98.0) fL MCH (27.0-32.0) pg MCHC (31.0-37.0) g/dL RDW Std Deviation (28.0-62.0) fl RDW Coeff of [place] (11.0-15.0) % Plt Count (150-400) K/uL MPV (7.40-12.00) fL Neut % (Auto) (48.0-80.0) % Lymph % (Auto) (16.0-40.0) % [place] % (Auto) (0.0-15.0) % Eos % (Auto) (0.0-7.0) % Baso % (Auto) (0.0-1.5) % Neut # (Auto) (1.4-5.7) K/uL Lymph # (Auto) (0.6-2.4) K/uL [place] # (Auto) (0.0-0.8) K/uL Eos # (Auto) (0.0-0.7) K/uL Baso # (Auto) (0.0-0.1) K/uL Nucleated RBC % /100WBC Nucleated RBCs # K/uL ESR 23 H (0-19) mm/hr INR 1.14 Sodium (136-148) mmol/L Potassium (3.5-5.1) mmol/L Chloride (98-107) mmol/L Carbon Dioxide (21.0-32.0) mmol/L BUN (7.0-18.0) mg/dL Creatinine (0.8-1.3) mg/dL Est Cr Clr Drug Dosing Estimated GFR (MDRD) ml/min Glucose (74-106) mg/dL Lactic Acid (0.4-2.0) mmol/L Calcium (8.5-10.1) mg/dL Magnesium (1.8-2.4) mg/dL Total Bilirubin (0.2-1.0) mg/dL AST (15-37) IU/L ALT (14-63) IU/L Alkaline Phosphatase (46-116) U/L Creatine Kinase (26-308) U/L Troponin I (0.000-0.056) ng/mL B-Natriuretic Peptide 53 (<100) PG/ML Total Protein (6.4-8.2) g/dL Albumin (3.4-5.0) g/dL Globulin (2.6-4.0) g/dL Albumin/Globulin Ratio (0.9-1.6) Lipase (73-393) U/L TSH, Ultra Sensitive (0.36-3.74) uIU/mL Urine Color Urine Appearance Urine pH (5.0-8.0) Ur Specific [place] (1.001-1.035) Urine Protein (NEGATIVE) mg/dL Urine Glucose (UA) (NEGATIVE) mg/dL Urine Ketones (NEGATIVE) mg/dL Urine Occult Blood (NEGATIVE) Urine Nitrite (NEGATIVE) Urine Bilirubin (NEGATIVE) Urine Urobilinogen (<2.0) EU/dL Ur Leukocyte Esterase (NEGATIVE) Urine RBC (0-2/HPF) Urine WBC (0-5/HPF) Ur Epithelial Cells (NONE-FEW) Calcium Oxalate Crystal (NEGATIVE) Urine Bacteria (NEGATIVE) SARS-CoV-2 RNA (MERI) (NEGATIVE) 10/06/21 10/06/21 10/06/21 Range/Units 14:45 14:50 15:45 WBC (4.0-11.0) K/uL RBC (4.50-5.90) M/uL Hgb (13.0-17.0) g/dL Hct (38.0-50.0) % MCV (80.0-98.0) fL MCH (27.0-32.0) pg MCHC (31.0-37.0) g/dL RDW Std Deviation (28.0-62.0) fl RDW Coeff of [place] (11.0-15.0) % Plt Count (150-400) K/uL MPV (7.40-12.00) fL Neut % (Auto) (48.0-80.0) % Lymph % (Auto) (16.0-40.0) % [place] % (Auto) (0.0-15.0) % Eos % (Auto) (0.0-7.0) % Baso % (Auto) (0.0-1.5) % Neut # (Auto) (1.4-5.7) K/uL Lymph # (Auto) (0.6-2.4) K/uL [place] # (Auto) (0.0-0.8) K/uL Eos # (Auto) (0.0-0.7) K/uL Baso # (Auto) (0.0-0.1) K/uL Nucleated RBC % /100WBC Nucleated RBCs # K/uL ESR (0-19) mm/hr INR Sodium (136-148) mmol/L Potassium (3.5-5.1) mmol/L Chloride (98-107) mmol/L Carbon Dioxide (21.0-32.0) mmol/L BUN (7.0-18.0) mg/dL Creatinine (0.8-1.3) mg/dL Est Cr Clr Drug Dosing Estimated GFR (MDRD) ml/min Glucose (74-106) mg/dL Lactic Acid (0.4-2.0) mmol/L Calcium (8.5-10.1) mg/dL Magnesium (1.8-2.4) mg/dL Total Bilirubin (0.2-1.0) mg/dL AST (15-37) IU/L ALT (14-63) IU/L Alkaline Phosphatase (46-116) U/L Creatine Kinase 5016 H (26-308) U/L Troponin I 0.099 H* (0.000-0.056) ng/mL B-Natriuretic Peptide (<100) PG/ML Total Protein (6.4-8.2) g/dL Albumin (3.4-5.0) g/dL Globulin (2.6-4.0) g/dL Albumin/Globulin Ratio (0.9-1.6) Lipase (73-393) U/L TSH, Ultra Sensitive (0.36-3.74) uIU/mL Urine Color YELLOW Urine Appearance CLOUDY Urine pH 7.5 (5.0-8.0) Ur Specific [place] 1.020 (1.001-1.035) Urine Protein 100 H (NEGATIVE) mg/dL Urine Glucose (UA) NEGATIVE (NEGATIVE) mg/dL Urine Ketones 15 H (NEGATIVE) mg/dL Urine Occult Blood MODERATE H (NEGATIVE) Urine Nitrite POSITIVE H (NEGATIVE) Urine Bilirubin NEGATIVE (NEGATIVE) Urine Urobilinogen 0.2 (<2.0) EU/dL Ur Leukocyte Esterase LARGE H (NEGATIVE) Urine RBC 10-15 (0-2/HPF) Urine WBC TO NUMEROUS TO COUNT H (0-5/HPF) Ur Epithelial Cells FEW (NONE-FEW) Calcium Oxalate Crystal MODERATE (NEGATIVE) Urine Bacteria 4+ H (NEGATIVE) SARS-CoV-2 RNA (MERI) NEGATIVE (NEGATIVE) 10/06/21 Range/Units 15:45 WBC (4.0-11.0) K/uL RBC (4.50-5.90) M/uL Hgb (13.0-17.0) g/dL Hct (38.0-50.0) % MCV (80.0-98.0) fL MCH (27.0-32.0) pg MCHC (31.0-37.0) g/dL RDW Std Deviation (28.0-62.0) fl RDW Coeff of [place] (11.0-15.0) % Plt Count (150-400) K/uL MPV (7.40-12.00) fL Neut % (Auto) (48.0-80.0) % Lymph % (Auto) (16.0-40.0) % [place] % (Auto) (0.0-15.0) % Eos % (Auto) (0.0-7.0) % Baso % (Auto) (0.0-1.5) % Neut # (Auto) (1.4-5.7) K/uL Lymph # (Auto) (0.6-2.4) K/uL [place] # (Auto) (0.0-0.8) K/uL Eos # (Auto) (0.0-0.7) K/uL Baso # (Auto) (0.0-0.1) K/uL Nucleated RBC % /100WBC Nucleated RBCs # K/uL ESR (0-19) mm/hr INR Sodium (136-148) mmol/L Potassium (3.5-5.1) mmol/L Chloride (98-107) mmol/L Carbon Dioxide (21.0-32.0) mmol/L BUN (7.0-18.0) mg/dL Creatinine (0.8-1.3) mg/dL Est Cr Clr Drug Dosing Estimated GFR (MDRD) ml/min Glucose (74-106) mg/dL Lactic Acid 2.3 H* (0.4-2.0) mmol/L Calcium (8.5-10.1) mg/dL Magnesium (1.8-2.4) mg/dL Total Bilirubin (0.2-1.0) mg/dL AST (15-37) IU/L ALT (14-63) IU/L Alkaline Phosphatase (46-116) U/L Creatine Kinase (26-308) U/L Troponin I (0.000-0.056) ng/mL B-Natriuretic Peptide (<100) PG/ML Total Protein (6.4-8.2) g/dL Albumin (3.4-5.0) g/dL Globulin (2.6-4.0) g/dL Albumin/Globulin Ratio (0.9-1.6) Lipase (73-393) U/L TSH, Ultra Sensitive (0.36-3.74) uIU/mL Urine Color Urine Appearance Urine pH (5.0-8.0) Ur Specific [place] (1.001-1.035) Urine Protein (NEGATIVE) mg/dL Urine Glucose (UA) (NEGATIVE) mg/dL Urine Ketones (NEGATIVE) mg/dL Urine Occult Blood (NEGATIVE) Urine Nitrite (NEGATIVE) Urine Bilirubin (NEGATIVE) Urine Urobilinogen (<2.0) EU/dL Ur Leukocyte Esterase (NEGATIVE) Urine RBC (0-2/HPF) Urine WBC (0-5/HPF) Ur Epithelial Cells (NONE-FEW) Calcium Oxalate Crystal (NEGATIVE) Urine Bacteria (NEGATIVE) SARS-CoV-2 RNA (MERI) (NEGATIVE) Result Diagrams: 10/06/21 13:01 10/06/21 13:01 Glenn Results Last 24 hrs: Microbiology 10/06/21 13:10 Anaerobic Blood Culture - Final Blood - Venous - Lab Draw 10/06/21 13:01 Anaerobic Blood Culture - Final Blood - Venous Sepsis Event Note - Evaluation Sepsis Screening Result: Possible Sepsis Risk - Focused Exam Vital Signs: Vital Signs Temp Pulse Resp BP Pulse Ox 10/06/21 17:20 97 100 10/06/21 16:24 90 110/54 L 100 10/06/21 15:30 92 96 10/06/21 14:46 88 113/65 96 10/06/21 14:16 86 108/67 100 10/06/21 13:55 96 125/62 100 10/06/21 13:30 85 103/73 100 10/06/21 13:03 93 112/69 100 10/06/21 12:39 37.3 C 80 20 103/73 92 L - Problem List (1) Dehydration SNOMED Code(s): 13686295 ICD Code: E86.0 - DEHYDRATION Status: Acute Current Visit: Yes (2) Rhabdomyolysis SNOMED Code(s): 990896870 ICD Code: M62.82 - RHABDOMYOLYSIS Status: Acute Current Visit: Yes (3) Sepsis SNOMED Code(s): 24030920 ICD Code: A41.9 - SEPSIS, UNSPECIFIED ORGANISM Status: Acute Current Visit: Yes (4) UTI (urinary tract infection) SNOMED Code(s): 26745959 ICD Code: N39.0 - URINARY TRACT INFECTION, SITE NOT SPECIFIED Status: Acute Current Visit: Yes Qualifiers: Urinary tract infection type: acute cystitis Hematuria presence: without hematuria Qualified Code(s): N30.00 - Acute cystitis without hematuria (5) Renal insufficiency, mild SNOMED Code(s): 020834616 ICD Code: N28.9 - DISORDER OF KIDNEY AND URETER, UNSPECIFIED Status: Acute Current Visit: No Problem List Initiated/Reviewed/Updated: Yes Orders Last 24hrs: Active Orders 24 hr Category Date Time Status Admission Status [Patient Status] [ADT] Stat ADT 10/06/21 16:31 Active Cardiac Monitoring [RC] . DIRECTED Care 10/06/21 12:46 Active [place] Catheter Insertion [Insert Urinary Catheter] [OM. Care 10/06/21 14:45 Ordered PC] Q24H Intake and Output Strict [RC] ASDIRECTED Care 10/06/21 14:36 Active Pulse Oximetry [RC] ASDIRECTED Care 10/06/21 12:46 Active Urinary Catheter Assessment [RC] ASDIRECTED Care 10/06/21 14:36 Active CPK [CREATINE KINASE,CK] [CHEM] Q7H Lab 10/06/21 22:00 Ordered CPK [CREATINE KINASE,CK] [CHEM] Q7H Lab 10/07/21 05:00 Ordered CULTURE BLOOD [BC] Stat Lab 10/06/21 13:01 Results CULTURE BLOOD [BC] Stat Lab 10/06/21 13:10 Results CULTURE URINE [MREF] Stat Lab 10/06/21 14:50 Received LACTIC ACID [CHEM] Q7H Lab 10/06/21 22:00 Ordered LACTIC ACID [CHEM] Q7H Lab 10/07/21 05:00 Ordered TROPONIN I [CHEM] Q7H Lab 10/06/21 22:00 Ordered TROPONIN I [CHEM] Q7H Lab 10/07/21 05:00 Ordered Levothyroxine Sodium [Levothyroxine] Med 10/07/21 09:00 Ordered 75 mcg PO DAILY Sodium Chloride 0.9% [Saline Flush] Med 10/06/21 12:46 Active 10 ml FLUSH ASDIRECTED PRN Sodium Chloride 0.9% [Saline Flush] Med 10/06/21 12:46 Active 2.5 ml FLUSH ASDIRECTED PRN Blood Culture x2 Reflex Set [OM.PC] Stat Oth 10/06/21 12:47 Ordered Saline Lock Insert [OM.PC] Stat Oth 10/06/21 12:46 Ordered Medication Orders Sodium Chloride (Sodium Chloride 0.9% 10 Ml Syringe) 10 ml FLUSH ASDIRECTED PRN PRN Reason: Keep Vein Open Last Admin: 10/06/21 13:50 Dose: 10 ml Documented by: DAVON Sodium Chloride (Sodium Chloride 0.9% 2.5 Ml Syringe) 2.5 ml FLUSH ASDIRECTED PRN PRN Reason: Keep Vein Open Last Admin: 10/06/21 13:51 Dose: 2.5 ml Documented by: DAVON Assessment/Plan Comment:: 80 yo male admitted after being found down. UTI: continue Rocephin, cultures pending, trending lactic acid Rhabdomyolysis: continue IV fluids Troponin leak: likely due to stress and rhabdomyolysis, will continue to trend Delirium: could be due to acute illness vs dementia.
[2021-10-06] MEDS: Sodium Chloride 0.9% 1,000 ML IV SCH (20:46)
[2021-10-06] MEDS: Heparin Sodium 5,000 Units/ML Vial SUBCUT SCH (20:46)
[2021-10-07] MEDS: Sodium Chloride 0.9% 1,000 ML IV SCH ×2 (03:47→11:33)
[2021-10-07] MEDS: Heparin Sodium 5,000 Units/ML Vial SUBCUT SCH ×3 (04:21→20:57)
[2021-10-07 06:19] LABS: CARBON DIOXIDE,CO2 21.9 mmol/L (21.0-32.0)
[2021-10-07] MEDS: Levothyroxine 75 MCG Tab PO SCH ×2 (06:48→09:26)
[2021-10-07] MEDS: Aspirin 81 MG Tab.Chew PO SCH (09:26)
[2021-10-07] MEDS: Tamsulosin 0.4 MG Cap.ER PO SCH (09:26)
[2021-10-07] MEDS: Dextrose 5%-Lactated Ringers 1,000 ML IV SCH ×2 (12:38→23:25)
[2021-10-07] MEDS ORDERED: cefTRIAXone 1 GM in Sodium Chloride 0.9% 50 ML IV SCH (14:00)
[2021-10-07] MEDS: cefTRIAXone 1 GM in Premix Bag 1 BAG IV SCH (14:03)
--- NOTE | 2021-10-07 15:18 | PCM.PN ---
- General Info Date of Service: 10/07/21 Admission Dx/Problem (Free Text): Admission Diagnosis/Problem Admission Diagnosis/Problem Dehydration Subjective Update: Patient seen at bedside, patient's son at bedside as well. Patient is responsive to my voice and opens his eyes in response to my questions. But drifts back to sleep very easily. Son at bedside states that he looks a little better today. Patient denies any acute pain. Functional Status: Reports: Urinating. Denies: Tolerating Diet, Ambulating - Review of Systems General: Reports: Fever, Weakness, Fatigue Pulmonary: Denies: Shortness of Breath, Pleuritic Chest Pain Cardiovascular: Denies: Chest Pain, Palpitations Gastrointestinal: Reports: Constipation, Decreased Appetite. Denies: Abdominal Pain Genitourinary: Denies: Dysuria, Frequency, Burning Musculoskeletal: Denies: Neck Pain, Shoulder Pain, Arm Pain Skin: Denies: Cyanosis, Jaundice, Mottled Neurological: Reports: Confusion. Denies: Dizziness, Headache, Numbness - Patient Data Vitals - Most Recent: Last Vital Signs Temp 37.5 C 10/07/21 12:01 Pulse 105 H 10/07/21 12:01 Resp 20 10/07/21 12:01 BP 130/60 10/07/21 12:01 Pulse Ox 94 L 10/07/21 12:01 Weight - Most Recent: 52.5 kg I&O - Last 24 Hours: Intake & Output 10/07/21 10/07/21 10/07/21 06:59 14:59 22:59 Intake Total 10 Output Total 600 Balance -590 Lab Results Last 24 Hours: Laboratory Results - last 24 hr 10/06/21 10/06/21 10/06/21 Range/Units 14:45 14:50 15:45 WBC (4.0-11.0) K/uL RBC (4.50-5.90) M/uL Hgb (13.0-17.0) g/dL Hct (38.0-50.0) % MCV (80.0-98.0) fL MCH (27.0-32.0) pg MCHC (31.0-37.0) g/dL RDW Std Deviation (28.0-62.0) fl RDW Coeff of [place] (11.0-15.0) % Plt Count (150-400) K/uL MPV (7.40-12.00) fL Neut % (Auto) (48.0-80.0) % Lymph % (Auto) (16.0-40.0) % [place] % (Auto) (0.0-15.0) % Eos % (Auto) (0.0-7.0) % Baso % (Auto) (0.0-1.5) % Neut # (Auto) (1.4-5.7) K/uL Lymph # (Auto) (0.6-2.4) K/uL [place] # (Auto) (0.0-0.8) K/uL Eos # (Auto) (0.0-0.7) K/uL Baso # (Auto) (0.0-0.1) K/uL Nucleated RBC % /100WBC Nucleated RBCs # K/uL Sodium (136-148) mmol/L Potassium (3.5-5.1) mmol/L Chloride (98-107) mmol/L Carbon Dioxide (21.0-32.0) mmol/L BUN (7.0-18.0) mg/dL Creatinine (0.8-1.3) mg/dL Est Cr Clr Drug Dosing mL/min Estimated GFR (MDRD) ml/min Glucose (74-106) mg/dL POC Glucose (70-99) mg/dL Lactic Acid (0.4-2.0) mmol/L Calcium (8.5-10.1) mg/dL Total Bilirubin (0.2-1.0) mg/dL AST (15-37) IU/L ALT (14-63) IU/L Alkaline Phosphatase (46-116) U/L Creatine Kinase 5016 H (26-308) U/L Troponin I 0.099 H* (0.000-0.056) ng/mL Total Protein (6.4-8.2) g/dL Albumin (3.4-5.0) g/dL Globulin (2.6-4.0) g/dL Albumin/Globulin Ratio (0.9-1.6) Urine Color YELLOW Urine Appearance CLOUDY Urine pH 7.5 (5.0-8.0) Ur Specific [place] 1.020 (1.001-1.035) Urine Protein 100 H (NEGATIVE) mg/dL Urine Glucose (UA) NEGATIVE (NEGATIVE) mg/dL Urine Ketones 15 H (NEGATIVE) mg/dL Urine Occult Blood MODERATE H (NEGATIVE) Urine Nitrite POSITIVE H (NEGATIVE) Urine Bilirubin NEGATIVE (NEGATIVE) Urine Urobilinogen 0.2 (<2.0) EU/dL Ur Leukocyte Esterase LARGE H (NEGATIVE) Urine RBC 10-15 (0-2/HPF) Urine WBC TO NUMEROUS TO COUNT H (0-5/HPF) Ur Epithelial Cells FEW (NONE-FEW) Calcium Oxalate Crystal MODERATE (NEGATIVE) Urine Bacteria 4+ H (NEGATIVE) SARS-CoV-2 RNA (MERI) NEGATIVE (NEGATIVE) 10/06/21 10/06/21 10/06/21 Range/Units 15:45 22:21 22:21 WBC (4.0-11.0) K/uL RBC (4.50-5.90) M/uL Hgb (13.0-17.0) g/dL Hct (38.0-50.0) % MCV (80.0-98.0) fL MCH (27.0-32.0) pg MCHC (31.0-37.0) g/dL RDW Std Deviation (28.0-62.0) fl RDW Coeff of [place] (11.0-15.0) % Plt Count (150-400) K/uL MPV (7.40-12.00) fL Neut % (Auto) (48.0-80.0) % Lymph % (Auto) (16.0-40.0) % [place] % (Auto) (0.0-15.0) % Eos % (Auto) (0.0-7.0) % Baso % (Auto) (0.0-1.5) % Neut # (Auto) (1.4-5.7) K/uL Lymph # (Auto) (0.6-2.4) K/uL [place] # (Auto) (0.0-0.8) K/uL Eos # (Auto) (0.0-0.7) K/uL Baso # (Auto) (0.0-0.1) K/uL Nucleated RBC % /100WBC Nucleated RBCs # K/uL Sodium (136-148) mmol/L Potassium (3.5-5.1) mmol/L Chloride (98-107) mmol/L Carbon Dioxide (21.0-32.0) mmol/L BUN (7.0-18.0) mg/dL Creatinine (0.8-1.3) mg/dL Est Cr Clr Drug Dosing mL/min Estimated GFR (MDRD) ml/min Glucose (74-106) mg/dL POC Glucose (70-99) mg/dL Lactic Acid 2.3 H* 1.2 (0.4-2.0) mmol/L Calcium (8.5-10.1) mg/dL Total Bilirubin (0.2-1.0) mg/dL AST (15-37) IU/L ALT (14-63) IU/L Alkaline Phosphatase (46-116) U/L Creatine Kinase 3633 H (26-308) U/L Troponin I 0.105 H* (0.000-0.056) ng/mL Total Protein (6.4-8.2) g/dL Albumin (3.4-5.0) g/dL Globulin (2.6-4.0) g/dL Albumin/Globulin Ratio (0.9-1.6) Urine Color Urine Appearance Urine pH (5.0-8.0) Ur Specific [place] (1.001-1.035) Urine Protein (NEGATIVE) mg/dL Urine Glucose (UA) (NEGATIVE) mg/dL Urine Ketones (NEGATIVE) mg/dL Urine Occult Blood (NEGATIVE) Urine Nitrite (NEGATIVE) Urine Bilirubin (NEGATIVE) Urine Urobilinogen (<2.0) EU/dL Ur Leukocyte Esterase (NEGATIVE) Urine RBC (0-2/HPF) Urine WBC (0-5/HPF) Ur Epithelial Cells (NONE-FEW) Calcium Oxalate Crystal (NEGATIVE) Urine Bacteria (NEGATIVE) SARS-CoV-2 RNA (MERI) (NEGATIVE) 10/07/21 10/07/21 10/07/21 Range/Units 00:16 05:37 05:37 WBC (4.0-11.0) K/uL RBC (4.50-5.90) M/uL Hgb (13.0-17.0) g/dL Hct (38.0-50.0) % MCV (80.0-98.0) fL MCH (27.0-32.0) pg MCHC (31.0-37.0) g/dL RDW Std Deviation (28.0-62.0) fl RDW Coeff of [place] (11.0-15.0) % Plt Count (150-400) K/uL MPV (7.40-12.00) fL Neut % (Auto) (48.0-80.0) % Lymph % (Auto) (16.0-40.0) % [place] % (Auto) (0.0-15.0) % Eos % (Auto) (0.0-7.0) % Baso % (Auto) (0.0-1.5) % Neut # (Auto) (1.4-5.7) K/uL Lymph # (Auto) (0.6-2.4) K/uL [place] # (Auto) (0.0-0.8) K/uL Eos # (Auto) (0.0-0.7) K/uL Baso # (Auto) (0.0-0.1) K/uL Nucleated RBC % /100WBC Nucleated RBCs # K/uL Sodium (136-148) mmol/L Potassium (3.5-5.1) mmol/L Chloride (98-107) mmol/L Carbon Dioxide (21.0-32.0) mmol/L BUN (7.0-18.0) mg/dL Creatinine (0.8-1.3) mg/dL Est Cr Clr Drug Dosing mL/min Estimated GFR (MDRD) ml/min Glucose (74-106) mg/dL POC Glucose 96 (70-99) mg/dL Lactic Acid 1.1 (0.4-2.0) mmol/L Calcium (8.5-10.1) mg/dL Total Bilirubin (0.2-1.0) mg/dL AST (15-37) IU/L ALT (14-63) IU/L Alkaline Phosphatase (46-116) U/L Creatine Kinase 3031 H (26-308) U/L Troponin I (0.000-0.056) ng/mL Total Protein (6.4-8.2) g/dL Albumin (3.4-5.0) g/dL Globulin (2.6-4.0) g/dL Albumin/Globulin Ratio (0.9-1.6) Urine Color Urine Appearance Urine pH (5.0-8.0) Ur Specific [place] (1.001-1.035) Urine Protein (NEGATIVE) mg/dL Urine Glucose (UA) (NEGATIVE) mg/dL Urine Ketones (NEGATIVE) mg/dL Urine Occult Blood (NEGATIVE) Urine Nitrite (NEGATIVE) Urine Bilirubin (NEGATIVE) Urine Urobilinogen (<2.0) EU/dL Ur Leukocyte Esterase (NEGATIVE) Urine RBC (0-2/HPF) Urine WBC (0-5/HPF) Ur Epithelial Cells (NONE-FEW) Calcium Oxalate Crystal (NEGATIVE) Urine Bacteria (NEGATIVE) SARS-CoV-2 RNA (MERI) (NEGATIVE) 10/07/21 10/07/21 10/07/21 Range/Units 05:37 05:37 05:55 WBC 11.09 H (4.0-11.0) K/uL RBC 3.85 L (4.50-5.90) M/uL Hgb 11.9 L (13.0-17.0) g/dL Hct 35.9 L (38.0-50.0) % MCV 93.2 (80.0-98.0) fL MCH 30.9 (27.0-32.0) pg MCHC 33.1 (31.0-37.0) g/dL RDW Std Deviation 48.2 (28.0-62.0) fl RDW Coeff of [place] 14 (11.0-15.0) % Plt Count 188 (150-400) K/uL MPV 9.10 (7.40-12.00) fL Neut % (Auto) 87.8 H (48.0-80.0) % Lymph % (Auto) 4.3 L (16.0-40.0) % [place] % (Auto) 7.9 (0.0-15.0) % Eos % (Auto) 0.0 (0.0-7.0) % Baso % (Auto) 0.0 (0.0-1.5) % Neut # (Auto) 9.7 H (1.4-5.7) K/uL Lymph # (Auto) 0.5 L (0.6-2.4) K/uL [place] # (Auto) 0.9 H (0.0-0.8) K/uL Eos # (Auto) 0.0 (0.0-0.7) K/uL Baso # (Auto) 0.0 (0.0-0.1) K/uL Nucleated RBC % 0.0 /100WBC Nucleated RBCs # 0 K/uL Sodium 148 (136-148) mmol/L Potassium 4.0 (3.5-5.1) mmol/L Chloride 110 H (98-107) mmol/L Carbon Dioxide 21.9 (21.0-32.0) mmol/L BUN 62 H (7.0-18.0) mg/dL Creatinine 1.5 H (0.8-1.3) mg/dL Est Cr Clr Drug Dosing 28.68 mL/min Estimated GFR (MDRD) 44.9 ml/min Glucose 100 (74-106) mg/dL POC Glucose 88 (70-99) mg/dL Lactic Acid (0.4-2.0) mmol/L Calcium 7.8 L (8.5-10.1) mg/dL Total Bilirubin 0.7 (0.2-1.0) mg/dL AST 182 H (15-37) IU/L ALT 62 (14-63) IU/L Alkaline Phosphatase 57 (46-116) U/L Creatine Kinase (26-308) U/L Troponin I (0.000-0.056) ng/mL Total Protein 5.2 L (6.4-8.2) g/dL Albumin 2.3 L (3.4-5.0) g/dL Globulin 2.9 (2.6-4.0) g/dL Albumin/Globulin Ratio 0.8 L (0.9-1.6) Urine Color Urine Appearance Urine pH (5.0-8.0) Ur Specific [place] (1.001-1.035) Urine Protein (NEGATIVE) mg/dL Urine Glucose (UA) (NEGATIVE) mg/dL Urine Ketones (NEGATIVE) mg/dL Urine Occult Blood (NEGATIVE) Urine Nitrite (NEGATIVE) Urine Bilirubin (NEGATIVE) Urine Urobilinogen (<2.0) EU/dL Ur Leukocyte Esterase (NEGATIVE) Urine RBC (0-2/HPF) Urine WBC (0-5/HPF) Ur Epithelial Cells (NONE-FEW) Calcium Oxalate Crystal (NEGATIVE) Urine Bacteria (NEGATIVE) SARS-CoV-2 RNA (MERI) (NEGATIVE) 10/07/21 10/07/21 Range/Units 11:08 12:03 WBC (4.0-11.0) K/uL RBC (4.50-5.90) M/uL Hgb (13.0-17.0) g/dL Hct (38.0-50.0) % MCV (80.0-98.0) fL MCH (27.0-32.0) pg MCHC (31.0-37.0) g/dL RDW Std Deviation (28.0-62.0) fl RDW Coeff of [place] (11.0-15.0) % Plt Count (150-400) K/uL MPV (7.40-12.00) fL Neut % (Auto) (48.0-80.0) % Lymph % (Auto) (16.0-40.0) % [place] % (Auto) (0.0-15.0) % Eos % (Auto) (0.0-7.0) % Baso % (Auto) (0.0-1.5) % Neut # (Auto) (1.4-5.7) K/uL Lymph # (Auto) (0.6-2.4) K/uL [place] # (Auto) (0.0-0.8) K/uL Eos # (Auto) (0.0-0.7) K/uL Baso # (Auto) (0.0-0.1) K/uL Nucleated RBC % /100WBC Nucleated RBCs # K/uL Sodium (136-148) mmol/L Potassium (3.5-5.1) mmol/L Chloride (98-107) mmol/L Carbon Dioxide (21.0-32.0) mmol/L BUN (7.0-18.0) mg/dL Creatinine (0.8-1.3) mg/dL Est Cr Clr Drug Dosing mL/min Estimated GFR (MDRD) ml/min Glucose (74-106) mg/dL POC Glucose 92 (70-99) mg/dL Lactic Acid (0.4-2.0) mmol/L Calcium (8.5-10.1) mg/dL Total Bilirubin (0.2-1.0) mg/dL AST (15-37) IU/L ALT (14-63) IU/L Alkaline Phosphatase (46-116) U/L Creatine Kinase (26-308) U/L Troponin I 0.067 H* (0.000-0.056) ng/mL Total Protein (6.4-8.2) g/dL Albumin (3.4-5.0) g/dL Globulin (2.6-4.0) g/dL Albumin/Globulin Ratio (0.9-1.6) Urine Color Urine Appearance Urine pH (5.0-8.0) Ur Specific [place] (1.001-1.035) Urine Protein (NEGATIVE) mg/dL Urine Glucose (UA) (NEGATIVE) mg/dL Urine Ketones (NEGATIVE) mg/dL Urine Occult Blood (NEGATIVE) Urine Nitrite (NEGATIVE) Urine Bilirubin (NEGATIVE) Urine Urobilinogen (<2.0) EU/dL Ur Leukocyte Esterase (NEGATIVE) Urine RBC (0-2/HPF) Urine WBC (0-5/HPF) Ur Epithelial Cells (NONE-FEW) Calcium Oxalate Crystal (NEGATIVE) Urine Bacteria (NEGATIVE) SARS-CoV-2 RNA (MERI) (NEGATIVE) Glenn Results Last 24 Hours: Microbiology 10/06/21 13:01 Aerobic Blood Culture - Preliminary Blood - Venous NO GROWTH AFTER 1 DAY Anaerobic Blood Culture - Final 10/06/21 13:10 Aerobic Blood Culture - Preliminary Blood - Venous - Lab Draw NO GROWTH AFTER 1 DAY Anaerobic Blood Culture - Final Med Orders - Current: Current Medications Aspirin (Aspirin 81 Mg Tab.Chew) 81 mg PO DAILY [facility] Last Admin: 10/07/21 09:26 Dose: 81 mg Documented by: Atorvastatin Calcium (Atorvastatin 40 Mg Tab) 40 mg PO BEDTIME [facility] Heparin Sodium (Porcine) (Heparin Sodium 5,000 Units/Ml Vial) 5,000 units SUBCUT Q8H [facility] Last Admin: 10/07/21 12:05 Dose: 5,000 units Documented by: Ceftriaxone Sodium/Dextrose 1 (gm/ Premix) 50 mls @ 100 mls/hr IV Q24H [facility] Last Admin: 10/07/21 14:03 Dose: 100 mls/hr Documented by: Dextrose/Lactated Ringer's (Dextrose 5%-Lactated Ringers) 1,000 mls @ 100 mls /hr IV Q10H [facility] Last Admin: 10/07/21 12:38 Dose: 100 mls/hr Documented by: Levothyroxine Sodium (Levothyroxine 75 Mcg Tab) 75 mcg PO ACBREAKFAST [facility] Last Admin: 10/07/21 09:26 Dose: 75 mcg Documented by: Sodium Chloride (Sodium Chloride 0.9% 10 Ml Syringe) 10 ml FLUSH ASDIRECTED PRN PRN Reason: Keep Vein Open Last Admin: 10/06/21 13:50 Dose: 10 ml Documented by: Sodium Chloride (Sodium Chloride 0.9% 2.5 Ml Syringe) 2.5 ml FLUSH ASDIRECTED PRN PRN Reason: Keep Vein Open Last Admin: 10/06/21 13:51 Dose: 2.5 ml Documented by: Tamsulosin HCl (Tamsulosin 0.4 Mg Cap.Er) 0.4 mg PO DAILY [facility] Last Admin: 10/07/21 09:26 Dose: 0.4 mg Documented by: Discontinued Medications Sodium Chloride (Normal Saline) 1,000 mls @ 1,000 mls/hr IV .Bolus ONE Stop: 10/06/21 13:47 Last Admin: 10/06/21 13:50 Dose: 1,000 mls/hr Documented by: Ceftriaxone Sodium/Dextrose 1 (gm/ Premix) 50 mls @ 100 mls/hr IV ONETIME ONE Stop: 10/06/21 14:40 Last Admin: 10/06/21 14:28 Dose: 100 mls/hr Documented by: Sodium Chloride (Normal Saline) 1,000 mls @ 1,000 mls/hr IV .Bolus ONE Stop: 10/06/21 15:10 Last Admin: 10/06/21 14:33 Dose: 1,000 mls/hr Documented by: Sodium Chloride (Normal Saline) 1,000 mls @ 500 mls/hr IV BOLUS ONE Stop: 10/06/21 16:11 Last Admin: 10/06/21 14:29 Dose: 500 mls/hr Documented by: Sodium Chloride (Normal Saline) 1,000 mls @ 125 mls/hr IV ASDIRECTED [facility] Last Admin: 10/07/21 11:33 Dose: 125 mls/hr Documented by: - Exam Quality Assessment: Supplemental Oxygen General: Mild Distress. No: Alert, Oriented, Cooperative Lungs: Normal Respiratory Effort, Decreased Breath Sounds, Crackles Cardiovascular: Regular Rate, Regular Rhythm GI/Abdominal Exam: Normal Bowel Sounds, Soft, Non-Tender Extremities: Normal Inspection, Normal Range of Motion - Patient Data Lab Results Last 24 hrs: Laboratory Results - last 24 hr 11/04/2110/06/21 10/06/21 Range/Units 14:45 14:50 15:45 WBC (4.0-11.0) K/uL RBC (4.50-5.90) M/uL Hgb (13.0-17.0) g/dL Hct (38.0-50.0) % MCV (80.0-98.0) fL MCH (27.0-32.0) pg MCHC (31.0-37.0) g/dL RDW Std Deviation (28.0-62.0) fl RDW Coeff of [place] (11.0-15.0) % Plt Count (150-400) K/uL MPV (7.40-12.00) fL Neut % (Auto) (48.0-80.0) % Lymph % (Auto) (16.0-40.0) % [place] % (Auto) (0.0-15.0) % Eos % (Auto) (0.0-7.0) % Baso % (Auto) (0.0-1.5) % Neut # (Auto) (1.4-5.7) K/uL Lymph # (Auto) (0.6-2.4) K/uL [place] # (Auto) (0.0-0.8) K/uL Eos # (Auto) (0.0-0.7) K/uL Baso # (Auto) (0.0-0.1) K/uL Nucleated RBC % /100WBC Nucleated RBCs # K/uL Sodium (136-148) mmol/L Potassium (3.5-5.1) mmol/L Chloride (98-107) mmol/L Carbon Dioxide (21.0-32.0) mmol/L BUN (7.0-18.0) mg/dL Creatinine (0.8-1.3) mg/dL Est Cr Clr Drug Dosing mL/min Estimated GFR (MDRD) ml/min Glucose (74-106) mg/dL POC Glucose (70-99) mg/dL Lactic Acid (0.4-2.0) mmol/L Calcium (8.5-10.1) mg/dL Total Bilirubin (0.2-1.0) mg/dL AST (15-37) IU/L ALT (14-63) IU/L Alkaline Phosphatase (46-116) U/L Creatine Kinase 5016 H (26-308) U/L Troponin I 0.099 H* (0.000-0.056) ng/mL Total Protein (6.4-8.2) g/dL Albumin (3.4-5.0) g/dL Globulin (2.6-4.0) g/dL Albumin/Globulin Ratio (0.9-1.6) Urine Color YELLOW Urine Appearance CLOUDY Urine pH 7.5 (5.0-8.0) Ur Specific [place] 1.020 (1.001-1.035) Urine Protein 100 H (NEGATIVE) mg/dL Urine Glucose (UA) NEGATIVE (NEGATIVE) mg/dL Urine Ketones 15 H (NEGATIVE) mg/dL Urine Occult Blood MODERATE H (NEGATIVE) Urine Nitrite POSITIVE H (NEGATIVE) Urine Bilirubin NEGATIVE (NEGATIVE) Urine Urobilinogen 0.2 (<2.0) EU/dL Ur Leukocyte Esterase LARGE H (NEGATIVE) Urine RBC 10-15 (0-2/HPF) Urine WBC TO NUMEROUS TO COUNT H (0-5/HPF) Ur Epithelial Cells FEW (NONE-FEW) Calcium Oxalate Crystal MODERATE (NEGATIVE) Urine Bacteria 4+ H (NEGATIVE) SARS-CoV-2 RNA (MERI) NEGATIVE (NEGATIVE) 10/06/21 10/06/21 10/06/21 Range/Units 15:45 22:21 22:21 WBC (4.0-11.0) K/uL RBC (4.50-5.90) M/uL Hgb (13.0-17.0) g/dL Hct (38.0-50.0) % MCV (80.0-98.0) fL MCH (27.0-32.0) pg MCHC (31.0-37.0) g/dL RDW Std Deviation (28.0-62.0) fl RDW Coeff of [place] (11.0-15.0) % Plt Count (150-400) K/uL MPV (7.40-12.00) fL Neut % (Auto) (48.0-80.0) % Lymph % (Auto) (16.0-40.0) % [place] % (Auto) (0.0-15.0) % Eos % (Auto) (0.0-7.0) % Baso % (Auto) (0.0-1.5) % Neut # (Auto) (1.4-5.7) K/uL Lymph # (Auto) (0.6-2.4) K/uL [place] # (Auto) (0.0-0.8) K/uL Eos # (Auto) (0.0-0.7) K/uL Baso # (Auto) (0.0-0.1) K/uL Nucleated RBC % /100WBC Nucleated RBCs # K/uL Sodium (136-148) mmol/L Potassium (3.5-5.1) mmol/L Chloride (98-107) mmol/L Carbon Dioxide (21.0-32.0) mmol/L BUN (7.0-18.0) mg/dL Creatinine (0.8-1.3) mg/dL Est Cr Clr Drug Dosing mL/min Estimated GFR (MDRD) ml/min Glucose (74-106) mg/dL POC Glucose (70-99) mg/dL Lactic Acid 2.3 H* 1.2 (0.4-2.0) mmol/L Calcium (8.5-10.1) mg/dL Total Bilirubin (0.2-1.0) mg/dL AST (15-37) IU/L ALT (14-63) IU/L Alkaline Phosphatase (46-116) U/L Creatine Kinase 3633 H (26-308) U/L Troponin I 0.105 H* (0.000-0.056) ng/mL Total Protein (6.4-8.2) g/dL Albumin (3.4-5.0) g/dL Globulin (2.6-4.0) g/dL Albumin/Globulin Ratio (0.9-1.6) Urine Color Urine Appearance Urine pH (5.0-8.0) Ur Specific [place] (1.001-1.035) Urine Protein (NEGATIVE) mg/dL Urine Glucose (UA) (NEGATIVE) mg/dL Urine Ketones (NEGATIVE) mg/dL Urine Occult Blood (NEGATIVE) Urine Nitrite (NEGATIVE) Urine Bilirubin (NEGATIVE) Urine Urobilinogen (<2.0) EU/dL Ur Leukocyte Esterase (NEGATIVE) Urine RBC (0-2/HPF) Urine WBC (0-5/HPF) Ur Epithelial Cells (NONE-FEW) Calcium Oxalate Crystal (NEGATIVE) Urine Bacteria (NEGATIVE) SARS-CoV-2 RNA (MERI) (NEGATIVE) 10/07/21 10/07/21 10/07/21 Range/Units 00:16 05:37 05:37 WBC (4.0-11.0) K/uL RBC (4.50-5.90) M/uL Hgb (13.0-17.0) g/dL Hct (38.0-50.0) % MCV (80.0-98.0) fL MCH (27.0-32.0) pg MCHC (31.0-37.0) g/dL RDW Std Deviation (28.0-62.0) fl RDW Coeff of [place] (11.0-15.0) % Plt Count (150-400) K/uL MPV (7.40-12.00) fL Neut % (Auto) (48.0-80.0) % Lymph % (Auto) (16.0-40.0) % [place] % (Auto) (0.0-15.0) % Eos % (Auto) (0.0-7.0) % Baso % (Auto) (0.0-1.5) % Neut # (Auto) (1.4-5.7) K/uL Lymph # (Auto) (0.6-2.4) K/uL [place] # (Auto) (0.0-0.8) K/uL Eos # (Auto) (0.0-0.7) K/uL Baso # (Auto) (0.0-0.1) K/uL Nucleated RBC % /100WBC Nucleated RBCs # K/uL Sodium (136-148) mmol/L Potassium (3.5-5.1) mmol/L Chloride (98-107) mmol/L Carbon Dioxide (21.0-32.0) mmol/L BUN (7.0-18.0) mg/dL Creatinine (0.8-1.3) mg/dL Est Cr Clr Drug Dosing mL/min Estimated GFR (MDRD) ml/min Glucose (74-106) mg/dL POC Glucose 96 (70-99) mg/dL Lactic Acid 1.1 (0.4-2.0) mmol/L Calcium (8.5-10.1) mg/dL Total Bilirubin (0.2-1.0) mg/dL AST (15-37) IU/L ALT (14-63) IU/L Alkaline Phosphatase (46-116) U/L Creatine Kinase 3031 H (26-308) U/L Troponin I (0.000-0.056) ng/mL Total Protein (6.4-8.2) g/dL Albumin (3.4-5.0) g/dL Globulin (2.6-4.0) g/dL Albumin/Globulin Ratio (0.9-1.6) Urine Color Urine Appearance Urine pH (5.0-8.0) Ur Specific [place] (1.001-1.035) Urine Protein (NEGATIVE) mg/dL Urine Glucose (UA) (NEGATIVE) mg/dL Urine Ketones (NEGATIVE) mg/dL Urine Occult Blood (NEGATIVE) Urine Nitrite (NEGATIVE) Urine Bilirubin (NEGATIVE) Urine Urobilinogen (<2.0) EU/dL Ur Leukocyte Esterase (NEGATIVE) Urine RBC (0-2/HPF) Urine WBC (0-5/HPF) Ur Epithelial Cells (NONE-FEW) Calcium Oxalate Crystal (NEGATIVE) Urine Bacteria (NEGATIVE) SARS-CoV-2 RNA (MERI) (NEGATIVE) 10/07/21 10/07/21 10/07/21 Range/Units 05:37 05:37 05:55 WBC 11.09 H (4.0-11.0) K/uL RBC 3.85 L (4.50-5.90) M/uL Hgb 11.9 L (13.0-17.0) g/dL Hct 35.9 L (38.0-50.0) % MCV 93.2 (80.0-98.0) fL MCH 30.9 (27.0-32.0) pg MCHC 33.1 (31.0-37.0) g/dL RDW Std Deviation 48.2 (28.0-62.0) fl RDW Coeff of [place] 14 (11.0-15.0) % Plt Count 188 (150-400) K/uL MPV 9.10 (7.40-12.00) fL Neut % (Auto) 87.8 H (48.0-80.0) % Lymph % (Auto) 4.3 L (16.0-40.0) % [place] % (Auto) 7.9 (0.0-15.0) % Eos % (Auto) 0.0 (0.0-7.0) % Baso % (Auto) 0.0 (0.0-1.5) % Neut # (Auto) 9.7 H (1.4-5.7) K/uL Lymph # (Auto) 0.5 L (0.6-2.4) K/uL [place] # (Auto) 0.9 H (0.0-0.8) K/uL Eos # (Auto) 0.0 (0.0-0.7) K/uL Baso # (Auto) 0.0 (0.0-0.1) K/uL Nucleated RBC % 0.0 /100WBC Nucleated RBCs # 0 K/uL Sodium 148 (136-148) mmol/L Potassium 4.0 (3.5-5.1) mmol/L Chloride 110 H (98-107) mmol/L Carbon Dioxide 21.9 (21.0-32.0) mmol/L BUN 62 H (7.0-18.0) mg/dL Creatinine 1.5 H (0.8-1.3) mg/dL Est Cr Clr Drug Dosing 28.68 mL/min Estimated GFR (MDRD) 44.9 ml/min Glucose 100 (74-106) mg/dL POC Glucose 88 (70-99) mg/dL Lactic Acid (0.4-2.0) mmol/L Calcium 7.8 L (8.5-10.1) mg/dL Total Bilirubin 0.7 (0.2-1.0) mg/dL AST 182 H (15-37) IU/L ALT 62 (14-63) IU/L Alkaline Phosphatase 57 (46-116) U/L Creatine Kinase (26-308) U/L Troponin I (0.000-0.056) ng/mL Total Protein 5.2 L (6.4-8.2) g/dL Albumin 2.3 L (3.4-5.0) g/dL Globulin 2.9 (2.6-4.0) g/dL Albumin/Globulin Ratio 0.8 L (0.9-1.6) Urine Color Urine Appearance Urine pH (5.0-8.0) Ur Specific [place] (1.001-1.035) Urine Protein (NEGATIVE) mg/dL Urine Glucose (UA) (NEGATIVE) mg/dL Urine Ketones (NEGATIVE) mg/dL Urine Occult Blood (NEGATIVE) Urine Nitrite (NEGATIVE) Urine Bilirubin (NEGATIVE) Urine Urobilinogen (<2.0) EU/dL Ur Leukocyte Esterase (NEGATIVE) Urine RBC (0-2/HPF) Urine WBC (0-5/HPF) Ur Epithelial Cells (NONE-FEW) Calcium Oxalate Crystal (NEGATIVE) Urine Bacteria (NEGATIVE) SARS-CoV-2 RNA (MREI) (NEGATIVE) 10/07/21 10/07/21 Range/Units 11:08 12:03 WBC (4.0-11.0) K/uL RBC (4.50-5.90) M/uL Hgb (13.0-17.0) g/dL Hct (38.0-50.0) % MCV (80.0-98.0) fL MCH (27.0-32.0) pg MCHC (31.0-37.0) g/dL RDW Std Deviation (28.0-62.0) fl RDW Coeff of [place] (11.0-15.0) % Plt Count (150-400) K/uL MPV (7.40-12.00) fL Neut % (Auto) (48.0-80.0) % Lymph % (Auto) (16.0-40.0) % [place] % (Auto) (0.0-15.0) % Eos % (Auto) (0.0-7.0) % Baso % (Auto) (0.0-1.5) % Neut # (Auto) (1.4-5.7) K/uL Lymph # (Auto) (0.6-2.4) K/uL [place] # (Auto) (0.0-0.8) K/uL Eos # (Auto) (0.0-0.7) K/uL Baso # (Auto) (0.0-0.1) K/uL Nucleated RBC % /100WBC Nucleated RBCs # K/uL Sodium (136-148) mmol/L Potassium (3.5-5.1) mmol/L Chloride (98-107) mmol/L Carbon Dioxide (21.0-32.0) mmol/L BUN (7.0-18.0) mg/dL Creatinine (0.8-1.3) mg/dL Est Cr Clr Drug Dosing mL/min Estimated GFR (MDRD) ml/min Glucose (74-106) mg/dL POC Glucose 92 (70-99) mg/dL Lactic Acid (0.4-2.0) mmol/L Calcium (8.5-10.1) mg/dL Total Bilirubin (0.2-1.0) mg/dL AST (15-37) IU/L ALT (14-63) IU/L Alkaline Phosphatase (46-116) U/L Creatine Kinase (26-308) U/L Troponin I 0.067 H* (0.000-0.056) ng/mL Total Protein (6.4-8.2) g/dL Albumin (3.4-5.0) g/dL Globulin (2.6-4.0) g/dL Albumin/Globulin Ratio (0.9-1.6) Urine Color Urine Appearance Urine pH (5.0-8.0) Ur Specific [place] (1.001-1.035) Urine Protein (NEGATIVE) mg/dL Urine Glucose (UA) (NEGATIVE) mg/dL Urine Ketones (NEGATIVE) mg/dL Urine Occult Blood (NEGATIVE) Urine Nitrite (NEGATIVE) Urine Bilirubin (NEGATIVE) Urine Urobilinogen (<2.0) EU/dL Ur Leukocyte Esterase (NEGATIVE) Urine RBC (0-2/HPF) Urine WBC (0-5/HPF) Ur Epithelial Cells (NONE-FEW) Calcium Oxalate Crystal (NEGATIVE) Urine Bacteria (NEGATIVE) SARS-CoV-2 RNA (MERI) (NEGATIVE) Result Diagrams: 10/07/21 05:37 10/07/21 05:37 Glenn Results Last 24 hrs: Microbiology 10/06/21 13:01 Aerobic Blood Culture - Preliminary Blood - Venous NO GROWTH AFTER 1 DAY Anaerobic Blood Culture - Final 10/06/21 13:10 Aerobic Blood Culture - Preliminary Blood - Venous - Lab Draw NO GROWTH AFTER 1 DAY Anaerobic Blood Culture - Final Sepsis Event Note - Evaluation Sepsis Screening Result: No Definite Risk - Focused Exam Vital Signs: Vital Signs Temp Pulse Resp BP Pulse Ox 10/07/21 12:01 37.5 C 105 H 20 130/60 94 L 10/07/21 09:17 36.3 C 95 18 154/65 H 93 L 10/07/21 04:00 37.0 C 89 18 129/75 99 - Problem List & Annotations (1) Dehydration SNOMED Code(s): 35346262 Code(s): E86.0 - DEHYDRATION Status: Acute Current Visit: Yes (2) Rhabdomyolysis SNOMED Code(s): 682597017 Code(s): M62.82 - RHABDOMYOLYSIS Status: Acute Current Visit: Yes (3) Sepsis SNOMED Code(s): 54892477 Code(s): A41.9 - SEPSIS, UNSPECIFIED ORGANISM Status: Acute Current Visit: Yes (4) UTI (urinary tract infection) SNOMED Code(s): 75078471 Code(s): N39.0 - URINARY TRACT INFECTION, SITE NOT SPECIFIED Status: Acute Current Visit: Yes Qualifiers: Urinary tract infection type: acute cystitis Hematuria presence: without hematuria Qualified Code(s): N30.00 - Acute cystitis without hematuria (5) Acute urinary retention SNOMED Code(s): 303857548 Code(s): R33.8 - OTHER RETENTION OF URINE Status: Acute Current Visit: No (6) Dehydration, mild SNOMED Code(s): 2162535034159 Code(s): E86.0 - DEHYDRATION Status: Acute Current Visit: No (7) Inspiratory stridor SNOMED Code(s): 27487865 Status: Acute Current Visit: No (8) Renal insufficiency, mild SNOMED Code(s): 820752150 Code(s): N28.9 - DISORDER OF KIDNEY AND URETER, UNSPECIFIED Status: Acute Current Visit: No - Problem List Review Problem List Initiated/Reviewed/Updated: Yes - My Orders Last 24 Hours: My Active Orders 10/07/21 00:26 Accu Check [Blood Glucose Check, Bedside] [RC] Q6H 10/07/21 09:00 Aspirin 81 mg PO DAILY Tamsulosin [Flomax] 0.4 mg PO DAILY 10/07/21 12:30 Dextrose 5%-Lactated Ringers 1,000 ml IV Q10H 10/07/21 21:00 atorvaSTATin [Lipitor] 40 mg PO BEDTIME - Plan Plan:: 80 yo male admitted after being found down. UTI: continue Rocephin, cultures pending, Rhabdomyolysis: continue IV fluids, CPK is trending down Troponin leak: likely due to stress and rhabdomyolysis, downtrending unlikely ACS will stop trending now Delirium: Likely due to ongoing infection Continue Larson care Patient will be n.p.o. for now till he is more awake and alert to avoid any risk for aspiration, will consult speech
[2021-10-07] MEDS ORDERED: atorvaSTATin 40 MG Tab PO SCH (21:00)
[2021-10-07] MEDS: Docusate Sodium 100 MG Cap PO SCH (21:06)
[2021-10-08] MEDS: Albuterol/Ipratropium 3.0-0.5 MG/3 ML Neb Soln NEB PRN ×2 (00:37→03:37)
[2021-10-08] MEDS: Heparin Sodium 5,000 Units/ML Vial SUBCUT SCH ×3 (03:28→21:31)
[2021-10-08] MEDS: Levothyroxine 75 MCG Tab PO SCH (06:32)
[2021-10-08 06:59] LABS: CARBON DIOXIDE,CO2 26.8 mmol/L (21.0-32.0); POTASSIUM,K 3.2 mmol/L (3.5-5.1)
[2021-10-08] MEDS ORDERED: D5 1/2 NS w/ 40 mEq/L KCl 1,000 ML IV SCH (09:30)
[2021-10-08] MEDS: Tamsulosin 0.4 MG Cap.ER PO SCH (10:38)
[2021-10-08] MEDS: Aspirin 81 MG Tab.Chew PO SCH (10:38)
[2021-10-08] MEDS: Docusate Sodium 100 MG Cap PO SCH (10:38)
[2021-10-08] MEDS: Dextrose 5%-Lactated Ringers 1,000 ML IV SCH (13:17)
--- NOTE | 2021-10-08 13:20 | PCM.PN ---
- General Info Date of Service: 10/08/21 Admission Dx/Problem (Free Text): Admission Diagnosis/Problem Admission Diagnosis/Problem Dehydration Subjective Update: Patient seen at bedside, patient is lethargic and barely opens his eyes to command, seems to be asking for water although he is unable to swallow or even sock on the mouth sponge. Functional Status: Reports: Urinating. Denies: Tolerating Diet, Ambulating - Review of Systems Systems Review Comment:: Unable to get ROS because of patient's altered mentation - Patient Data Vitals - Most Recent: Last Vital Signs Temp 37.1 C 10/08/21 08:00 Pulse 94 10/08/21 08:00 Resp 24 H 10/08/21 08:00 BP 141/67 H 10/08/21 08:00 Pulse Ox 98 10/08/21 08:00 Weight - Most Recent: 52.5 kg I&O - Last 24 Hours: Intake & Output 10/07/21 10/08/21 10/08/21 23:59 06:59 14:59 Intake Total Output Total Balance Lab Results Last 24 Hours: Laboratory Results - last 24 hr 10/07/21 10/07/21 10/08/21 Range/Units 18:12 23:29 05:23 WBC 9.03 (4.0-11.0) K/uL RBC 3.90 L (4.50-5.90) M/uL Hgb 11.9 L (13.0-17.0) g/dL Hct 37.2 L (38.0-50.0) % MCV 95.4 (80.0-98.0) fL MCH 30.5 (27.0-32.0) pg MCHC 32.0 (31.0-37.0) g/dL RDW Std Deviation 50.6 (28.0-62.0) fl RDW Coeff of Macarena 15 (11.0-15.0) % Plt Count 188 (150-400) K/uL MPV 9.60 (7.40-12.00) fL Add Manual Diff YES Neutrophils % (Manual) 75 (48.0-80.0) % Band Neutrophils % 15 % Lymphocytes % (Manual) 5 L (16.0-40.0) % Monocytes % (Manual) 5 (0.0-15.0) % Nucleated RBC % 0.0 /100WBC Absolute Seg Neuts 6.8 H (1.4-5.7) Band Neutrophils # 1.4 Lymphocytes # (Manual) 0.5 L (0.6-2.4) Monocytes # (Manual) 0.5 (0.0-0.8) Nucleated RBCs # 0 K/uL Sodium (136-148) mmol/L Potassium (3.5-5.1) mmol/L Chloride (98-107) mmol/L Carbon Dioxide (21.0-32.0) mmol/L BUN (7.0-18.0) mg/dL Creatinine (0.8-1.3) mg/dL Est Cr Clr Drug Dosing mL/min Estimated GFR (MDRD) ml/min Glucose (74-106) mg/dL POC Glucose 129 H 170 H (70-99) mg/dL Calcium (8.5-10.1) mg/dL Phosphorus (2.6-4.7) mg/dL Magnesium (1.8-2.4) mg/dL Creatine Kinase (26-308) U/L 10/08/21 10/08/21 10/08/21 Range/Units 05:23 05:23 05:28 WBC (4.0-11.0) K/uL RBC (4.50-5.90) M/uL Hgb (13.0-17.0) g/dL Hct (38.0-50.0) % MCV (80.0-98.0) fL MCH (27.0-32.0) pg MCHC (31.0-37.0) g/dL RDW Std Deviation (28.0-62.0) fl RDW Coeff of Macarena (11.0-15.0) % Plt Count (150-400) K/uL MPV (7.40-12.00) fL Add Manual Diff Neutrophils % (Manual) (48.0-80.0) % Band Neutrophils % % Lymphocytes % (Manual) (16.0-40.0) % Monocytes % (Manual) (0.0-15.0) % Nucleated RBC % /100WBC Absolute Seg Neuts (1.4-5.7) Band Neutrophils # Lymphocytes # (Manual) (0.6-2.4) Monocytes # (Manual) (0.0-0.8) Nucleated RBCs # K/uL Sodium 151 H (136-148) mmol/L Potassium 3.2 L (3.5-5.1) mmol/L Chloride 114 H (98-107) mmol/L Carbon Dioxide 26.8 (21.0-32.0) mmol/L BUN 47 H (7.0-18.0) mg/dL Creatinine 1.3 (0.8-1.3) mg/dL Est Cr Clr Drug Dosing 33.09 mL/min Estimated GFR (MDRD) 53.0 ml/min Glucose 144 H (74-106) mg/dL POC Glucose 129 H (70-99) mg/dL Calcium 8.5 (8.5-10.1) mg/dL Phosphorus 2.6 (2.6-4.7) mg/dL Magnesium 2.2 (1.8-2.4) mg/dL Creatine Kinase 1121 H (26-308) U/L Glenn Results Last 24 Hours: Microbiology 10/06/21 13:01 Aerobic Blood Culture - Preliminary Blood - Venous NO GROWTH AFTER 1 DAY Anaerobic Blood Culture - Final 10/06/21 13:10 Aerobic Blood Culture - Preliminary Blood - Venous - Lab Draw NO GROWTH AFTER 1 DAY Anaerobic Blood Culture - Final Med Orders - Current: Current Medications Albuterol/Ipratropium (Albuterol/Ipratropium 3.0-0.5 Mg/3 Ml Neb Soln) 3 ml NEB Q4HRRT PRN PRN Reason: Wheezing Last Admin: 10/08/21 03:37 Dose: 3 ml Documented by: Heparin Sodium (Porcine) (Heparin Sodium 5,000 Units/Ml Vial) 5,000 units SUBCUT Q8H [facility] Last Admin: 10/08/21 11:05 Dose: 5,000 units Documented by: Ceftriaxone Sodium/Dextrose 1 (gm/ Premix) 50 mls @ 100 mls/hr IV Q24H [facility] Last Admin: 10/07/21 14:03 Dose: 100 mls/hr Documented by: Dextrose/Sodium Chloride (Dextrose 5%-1/2 Ns) 1,000 mls @ 100 mls/hr IV Q10H [facility] Potassium Chloride/Dextrose/Sod Cl (D5 1/2 Ns W/ 40 Meq/L Kcl) 1,000 mls @ 125 mls/hr IV ASDIRECTED [facility] Stop: 10/08/21 17:29 Sodium Chloride (Sodium Chloride 0.9% 10 Ml Syringe) 10 ml FLUSH ASDIRECTED PRN PRN Reason: Keep Vein Open Last Admin: 10/06/21 13:50 Dose: 10 ml Documented by: Sodium Chloride (Sodium Chloride 0.9% 2.5 Ml Syringe) 2.5 ml FLUSH ASDIRECTED PRN PRN Reason: Keep Vein Open Last Admin: 10/06/21 13:51 Dose: 2.5 ml Documented by: Tamsulosin HCl (Tamsulosin 0.4 Mg Cap.Er) 0.4 mg PO DAILY [facility] Last Admin: 10/08/21 10:38 Dose: Not Given Documented by: Discontinued Medications Aspirin (Aspirin 81 Mg Tab.Chew) 81 mg PO DAILY [facility] Last Admin: 10/08/21 10:38 Dose: Not Given Documented by: Atorvastatin Calcium (Atorvastatin 40 Mg Tab) 40 mg PO BEDTIME [facility] Last Admin: 10/07/21 21:06 Dose: Not Given Documented by: Docusate Sodium (Docusate Sodium 100 Mg Cap) 100 mg PO BID [facility] Last Admin: 10/08/21 10:38 Dose: Not Given Documented by: Sodium Chloride (Normal Saline) 1,000 mls @ 1,000 mls/hr IV .Bolus ONE Stop: 10/06/21 13:47 Last Admin: 10/06/21 13:50 Dose: 1,000 mls/hr Documented by: Ceftriaxone Sodium/Dextrose 1 (gm/ Premix) 50 mls @ 100 mls/hr IV ONETIME ONE Stop: 10/06/21 14:40 Last Admin: 10/06/21 14:28 Dose: 100 mls/hr Documented by: Sodium Chloride (Normal Saline) 1,000 mls @ 1,000 mls/hr IV .Bolus ONE Stop: 10/06/21 15:10 Last Admin: 10/06/21 14:33 Dose: 1,000 mls/hr Documented by: Sodium Chloride (Normal Saline) 1,000 mls @ 500 mls/hr IV BOLUS ONE Stop: 10/06/21 16:11 Last Admin: 10/06/21 14:29 Dose: 500 mls/hr Documented by: Sodium Chloride (Normal Saline) 1,000 mls @ 125 mls/hr IV ASDIRECTED [facility] Last Admin: 10/07/21 11:33 Dose: 125 mls/hr Documented by: Dextrose/Lactated Ringer's (Dextrose 5%-Lactated Ringers) 1,000 mls @ 100 mls/hr IV Q10H [facility] Last Admin: 10/07/21 23:25 Dose: 100 mls/hr Documented by: Levothyroxine Sodium (Levothyroxine 75 Mcg Tab) 75 mcg PO ACBREAKFAST [facility] Last Admin: 10/08/21 06:32 Dose: Not Given Documented by: - Exam Quality Assessment: Supplemental Oxygen General: Mild Distress. No: Alert, Oriented Neck: No JVD, No Thyromegaly Lungs: Clear to Auscultation (Labored breathing compared to yesterday) Cardiovascular: Regular Rate, Regular Rhythm GI/Abdominal Exam: Normal Bowel Sounds, Soft, Non-Tender Extremities: Normal Inspection, Normal Range of Motion, Non-Tender - Patient Data Lab Results Last 24 hrs: Laboratory Results - last 24 hr 10/07/21 10/07/21 10/08/21 Range/Units 18:12 23:29 05:23 WBC 9.03 (4.0-11.0) K/uL RBC 3.90 L (4.50-5.90) M/uL Hgb 11.9 L (13.0-17.0) g/dL Hct 37.2 L (38.0-50.0) % MCV 95.4 (80.0-98.0) fL MCH 30.5 (27.0-32.0) pg MCHC 32.0 (31.0-37.0) g/dL RDW Std Deviation 50.6 (28.0-62.0) fl RDW Coeff of Macarena 15 (11.0-15.0) % Plt Count 188 (150-400) K/uL MPV 9.60 (7.40-12.00) fL Add Manual Diff YES Neutrophils % (Manual) 75 (48.0-80.0) % Band Neutrophils % 15 % Lymphocytes % (Manual) 5 L (16.0-40.0) % Monocytes % (Manual) 5 (0.0-15.0) % Nucleated RBC % 0.0 /100WBC Absolute Seg Neuts 6.8 H (1.4-5.7) Band Neutrophils # 1.4 Lymphocytes # (Manual) 0.5 L (0.6-2.4) Monocytes # (Manual) 0.5 (0.0-0.8) Nucleated RBCs # 0 K/uL Sodium (136-148) mmol/L Potassium (3.5-5.1) mmol/L Chloride (98-107) mmol/L Carbon Dioxide (21.0-32.0) mmol/L BUN (7.0-18.0) mg/dL Creatinine (0.8-1.3) mg/dL Est Cr Clr Drug Dosing mL/min Estimated GFR (MDRD) ml/min Glucose (74-106) mg/dL POC Glucose 129 H 170 H (70-99) mg/dL Calcium (8.5-10.1) mg/dL Phosphorus (2.6-4.7) mg/dL Magnesium (1.8-2.4) mg/dL Creatine Kinase (26-308) U/L 10/08/21 10/08/21 10/08/21 Range/Units 05:23 05:23 05:28 WBC (4.0-11.0) K/uL RBC (4.50-5.90) M/uL Hgb (13.0-17.0) g/dL Hct (38.0-50.0) % MCV (80.0-98.0) fL MCH (27.0-32.0) pg MCHC (31.0-37.0) g/dL RDW Std Deviation (28.0-62.0) fl RDW Coeff of Macarena (11.0-15.0) % Plt Count (150-400) K/uL MPV (7.40-12.00) fL Add Manual Diff Neutrophils % (Manual) (48.0-80.0) % Band Neutrophils % % Lymphocytes % (Manual) (16.0-40.0) % Monocytes % (Manual) (0.0-15.0) % Nucleated RBC % /100WBC Absolute Seg Neuts (1.4-5.7) Band Neutrophils # Lymphocytes # (Manual) (0.6-2.4) Monocytes # (Manual) (0.0-0.8) Nucleated RBCs # K/uL Sodium 151 H (136-148) mmol/L Potassium 3.2 L (3.5-5.1) mmol/L Chloride 114 H (98-107) mmol/L Carbon Dioxide 26.8 (21.0-32.0) mmol/L BUN 47 H (7.0-18.0) mg/dL Creatinine 1.3 (0.8-1.3) mg/dL Est Cr Clr Drug Dosing 33.09 mL/min Estimated GFR (MDRD) 53.0 ml/min Glucose 144 H (74-106) mg/dL POC Glucose 129 H (70-99) mg/dL Calcium 8.5 (8.5-10.1) mg/dL Phosphorus 2.6 (2.6-4.7) mg/dL Magnesium 2.2 (1.8-2.4) mg/dL Creatine Kinase 1121 H (26-308) U/L Result Diagrams: 10/08/21 05:23 10/08/21 05:23 Glenn Results Last 24 hrs: Microbiology 10/06/21 13:01 Aerobic Blood Culture - Preliminary Blood - Venous NO GROWTH AFTER 1 DAY Anaerobic Blood Culture - Final 10/06/21 13:10 Aerobic Blood Culture - Preliminary Blood - Venous - Lab Draw NO GROWTH AFTER 1 DAY Anaerobic Blood Culture - Final Sepsis Event Note - Evaluation Sepsis Screening Result: No Definite Risk - Focused Exam Vital Signs: Vital Signs Temp Pulse Resp BP Pulse Ox 10/08/21 08:00 37.1 C 94 24 H 141/67 H 98 10/08/21 03:00 36.9 C 103 H 24 H 138/64 97 - Problem List & Annotations (1) Dehydration SNOMED Code(s): 90408962 Code(s): E86.0 - DEHYDRATION Status: Acute Current Visit: Yes (2) Rhabdomyolysis SNOMED Code(s): 091061190 Code(s): M62.82 - RHABDOMYOLYSIS Status: Acute Current Visit: Yes (3) Sepsis SNOMED Code(s): 57278782 Code(s): A41.9 - SEPSIS, UNSPECIFIED ORGANISM Status: Acute Current Visit: Yes (4) UTI (urinary tract infection) SNOMED Code(s): 32180167 Code(s): N39.0 - URINARY TRACT INFECTION, SITE NOT SPECIFIED Status: Acute Current Visit: Yes Qualifiers: Urinary tract infection type: acute cystitis Hematuria presence: without hematuria Qualified Code(s): N30.00 - Acute cystitis without hematuria (5) Acute urinary retention SNOMED Code(s): 099213441 Code(s): R33.8 - OTHER RETENTION OF URINE Status: Acute Current Visit: No (6) Dehydration, mild SNOMED Code(s): 0762535684935 Code(s): E86.0 - DEHYDRATION Status: Acute Current Visit: No (7) Inspiratory stridor SNOMED Code(s): 99770746 Status: Acute Current Visit: No (8) Renal insufficiency, mild SNOMED Code(s): 036530812 Code(s): N28.9 - DISORDER OF KIDNEY AND URETER, UNSPECIFIED Status: Acute Current Visit: No (9) Failure to thrive SNOMED Code(s): 26341610 Code(s): YDI5197 - Status: Acute Current Visit: Yes (10) Palliative care status SNOMED Code(s): 933327535 Code(s): Z51.5 - ENCOUNTER FOR PALLIATIVE CARE Status: Acute Current Visit: Yes (11) End of life care SNOMED Code(s): 098153361, 480453192 Code(s): Z51.5 - ENCOUNTER FOR PALLIATIVE CARE Status: Acute Current Visit: Yes (12) Unable to eat SNOMED Code(s): 451971497 Code(s): R63.8 - OTHER SYMPTOMS AND SIGNS CONCERNING FOOD AND FLUID INTAKE Status: Acute Current Visit: Yes - Problem List Review Problem List Initiated/Reviewed/Updated: Yes - My Orders Last 24 Hours: My Active Orders 10/08/21 00:25 RT Aerosol Therapy [RC] ASDIRECTED Albuterol/Ipratropium [DuoNeb 3.0-0.5 MG/3 ML] 3 ml NEB Q4HRRT PRN 10/08/21 09:30 D5 1/2 NS w/ 40 mEq/L KCl 1,000 ml IV ASDIRECTED 10/08/21 09:32 Consult to Case Management/Addiction Professional [CONS] Routine 10/08/21 13:14 Resuscitation Status Routine 10/08/21 18:00 Dextrose 5%-0.45% NaCl [Dextrose 5%-1/2 NS] 1,000 ml IV Q10H - Plan Plan:: 80 yo male admitted after being found down. Admitted for UTI and encephalopathy UTI: continue Rocephin, cultures pending, Rhabdomyolysis: continue IV fluids, CPK is trending down Troponin leak: likely due to stress and rhabdomyolysis, downtrending unlikely ACS will stop trending now Delirium: Likely due to ongoing infection Continue Larson care Patient will be n.p.o. for now till he is more awake and alert to avoid any risk for aspiration, will consult speech I have discussed goals of care in detail with family at bedside including patient's son and daughter. They have requested to make the patient DNR/DNI and they would further like to discuss the possibility of palliative and comfort care measures. They are currently going to have family with other siblings and work shortly let me know about the goals of care status.
[2021-10-08] MEDS: cefTRIAXone 1 GM in Premix Bag 1 BAG IV SCH (13:53)
[2021-10-08] MEDS ORDERED: Morphine 2 MG/ML SYRINGE IVPUSH PRN (14:18)
[2021-10-08] MEDS ORDERED: LORazepam 2 MG/ML SDV IVPUSH PRN (14:19)
[2021-10-08] MEDS: Dextrose 5%-0.45% NaCl 1,000 ML IV SCH (23:42)
[2021-10-09] MEDS: Heparin Sodium 5,000 Units/ML Vial SUBCUT SCH ×3 (04:08→21:00)
[2021-10-09] MEDS: Dextrose 5%-0.45% NaCl 1,000 ML IV SCH (05:12)
--- NOTE | 2021-10-09 09:29 | PCM.PN ---
- General Info Date of Service: 10/09/21 Admission Dx/Problem (Free Text): Admission Diagnosis/Problem Admission Diagnosis/Problem Dehydration Subjective Update: Patient seen at bedside, patient is lethargic and barely opens his eyes to command, seems to be asking for water although he is unable to swallow or even sock on the mouth sponge. Functional Status: Reports: Urinating. Denies: Tolerating Diet, Ambulating - Review of Systems General: Reports: Weakness, Fatigue Pulmonary: Denies: Shortness of Breath, Pleuritic Chest Pain Cardiovascular: Denies: Chest Pain, Palpitations, Dyspnea on Exertion Gastrointestinal: Reports: Decreased Appetite. Denies: Abdominal Pain, Constipation Genitourinary: Denies: Dysuria, Frequency, Burning Musculoskeletal: Denies: Neck Pain, Shoulder Pain, Arm Pain Neurological: Reports: Confusion. Denies: Numbness, Paresthesia - Patient Data Vitals - Most Recent: Last Vital Signs Temp 36.6 C 10/09/21 04:00 Pulse 100 10/09/21 04:00 Resp 23 H 10/09/21 04:00 BP 134/73 10/09/21 04:00 Pulse Ox 97 10/09/21 04:00 Weight - Most Recent: 52.5 kg I&O - Last 24 Hours: Intake & Output 10/08/21 10/09/21 10/09/21 22:59 06:59 14:59 Intake Total 1110 2050 Output Total 525 1000 Balance 585 1050 Lab Results Last 24 Hours: Laboratory Results - last 24 hr 10/08/21 10/08/21 10/08/21 Range/Units 05:23 12:11 17:50 POC Glucose 149 H 134 H (70-99) mg/dL Creatine Kinase 1121 H (26-308) U/L 10/09/21 10/09/21 Range/Units 00:15 06:09 POC Glucose 129 H 144 H (70-99) mg/dL Creatine Kinase (26-308) U/L Glenn Results Last 24 Hours: Microbiology 10/06/21 14:50 Urine Culture - Preliminary Urine Proteus Mirabilis 10/06/21 13:01 Aerobic Blood Culture - Preliminary Blood - Venous NO GROWTH AFTER 2 DAYS Anaerobic Blood Culture - Final 10/06/21 13:10 Aerobic Blood Culture - Preliminary Blood - Venous - Lab Draw NO GROWTH AFTER 2 DAYS Anaerobic Blood Culture - Final Med Orders - Current: Current Medications Albuterol/Ipratropium (Albuterol/Ipratropium 3.0-0.5 Mg/3 Ml Neb Soln) 3 ml NEB Q4HRRT PRN PRN Reason: Wheezing Last Admin: 10/08/21 03:37 Dose: 3 ml Documented by: Heparin Sodium (Porcine) (Heparin Sodium 5,000 Units/Ml Vial) 5,000 units SUBCUT Q8H [facility] Last Admin: 10/09/21 04:08 Dose: 5,000 units Documented by: Ceftriaxone Sodium/Dextrose 1 (gm/ Premix) 50 mls @ 100 mls/hr IV Q24H [facility] Last Admin: 10/08/21 13:53 Dose: 100 mls/hr Documented by: Dextrose/Sodium Chloride (Dextrose 5%-1/2 Ns) 1,000 mls @ 100 mls/hr IV Q10H [facility] Last Admin: 10/09/21 05:12 Dose: Not Given Documented by: Lorazepam (Lorazepam 2 Mg/Ml Sdv) 1 mg IVPUSH Q2H PRN PRN Reason: Other Morphine Sulfate (Morphine 2 Mg/Ml Syringe) 1 mg IVPUSH Q3H PRN PRN Reason: Other Last Admin: 10/08/21 21:34 Dose: 1 mg Documented by: Sodium Chloride (Sodium Chloride 0.9% 10 Ml Syringe) 10 ml FLUSH ASDIRECTED PRN PRN Reason: Keep Vein Open Last Admin: 10/06/21 13:50 Dose: 10 ml Documented by: Sodium Chloride (Sodium Chloride 0.9% 2.5 Ml Syringe) 2.5 ml FLUSH ASDIRECTED PRN PRN Reason: Keep Vein Open Last Admin: 10/06/21 13:51 Dose: 2.5 ml Documented by: Discontinued Medications Aspirin (Aspirin 81 Mg Tab.Chew) 81 mg PO DAILY [facility] Last Admin: 10/08/21 10:38 Dose: Not Given Documented by: Atorvastatin Calcium (Atorvastatin 40 Mg Tab) 40 mg PO BEDTIME [facility] Last Admin: 10/07/21 21:06 Dose: Not Given Documented by: Docusate Sodium (Docusate Sodium 100 Mg Cap) 100 mg PO BID [facility] Last Admin: 10/08/21 10:38 Dose: Not Given Documented by: Sodium Chloride (Normal Saline) 1,000 mls @ 1,000 mls/hr IV .Bolus ONE Stop: 10/06/21 13:47 Last Admin: 10/06/21 13:50 Dose: 1,000 mls/hr Documented by: Ceftriaxone Sodium/Dextrose 1 (gm/ Premix) 50 mls @ 100 mls/hr IV ONETIME ONE Stop: 10/06/21 14:40 Last Admin: 10/06/21 14:28 Dose: 100 mls/hr Documented by: Sodium Chloride (Normal Saline) 1,000 mls @ 1,000 mls/hr IV .Bolus ONE Stop: 10/06/21 15:10 Last Admin: 10/06/21 14:33 Dose: 1,000 mls/hr Documented by: Sodium Chloride (Normal Saline) 1,000 mls @ 500 mls/hr IV BOLUS ONE Stop: 10/06/21 16:11 Last Admin: 10/06/21 14:29 Dose: 500 mls/hr Documented by: Sodium Chloride (Normal Saline) 1,000 mls @ 125 mls/hr IV ASDIRECTED [facility] Last Admin: 10/07/21 11:33 Dose: 125 mls/hr Documented by: Dextrose/Lactated Ringer's (Dextrose 5%-Lactated Ringers) 1,000 mls @ 100 mls/hr IV Q10H [facility] Last Admin: 10/08/21 13:17 Dose: Not Given Documented by: Potassium Chloride/Dextrose/Sod Cl (D5 1/2 Ns W/ 40 Meq/L Kcl) 1,000 mls @ 125 mls/hr IV ASDIRECTED [facility] Stop: 10/08/21 17:29 Last Admin: 10/08/21 15:30 Dose: 125 mls/hr Documented by: Levothyroxine Sodium (Levothyroxine 75 Mcg Tab) 75 mcg PO ACBREAKFAST [facility] Last Admin: 10/08/21 06:32 Dose: Not Given Documented by: Tamsulosin HCl (Tamsulosin 0.4 Mg Cap.Er) 0.4 mg PO DAILY [facility] Last Admin: 10/08/21 10:38 Dose: Not Given Documented by: - Exam Quality Assessment: Supplemental Oxygen General: Mild Distress Lungs: Clear to Auscultation, Decreased Breath Sounds Cardiovascular: Regular Rate, Regular Rhythm GI/Abdominal Exam: Normal Bowel Sounds, Non-Tender - Patient Data Lab Results Last 24 hrs: Laboratory Results - last 24 hr 1110/08/21 10/08/21 Range/Units 05:23 12:11 17:50 POC Glucose 149 H 134 H (70-99) mg/dL Creatine Kinase 1121 H (26-308) U/L 10/09/21 10/09/21 Range/Units 00:15 06:09 POC Glucose 129 H 144 H (70-99) mg/dL Creatine Kinase (26-308) U/L Result Diagrams: 10/08/21 05:23 10/08/21 05:23 Glenn Results Last 24 hrs: Microbiology 10/06/21 14:50 Urine Culture - Preliminary Urine Proteus Mirabilis 10/06/21 13:01 Aerobic Blood Culture - Preliminary Blood - Venous NO GROWTH AFTER 2 DAYS Anaerobic Blood Culture - Final 10/06/21 13:10 Aerobic Blood Culture - Preliminary Blood - Venous - Lab Draw NO GROWTH AFTER 2 DAYS Anaerobic Blood Culture - Final Sepsis Event Note - Evaluation Sepsis Screening Result: No Definite Risk - Focused Exam Vital Signs: Vital Signs Temp Pulse Resp BP Pulse Ox 10/09/21 04:00 36.6 C 100 23 H 134/73 97 10/09/21 00:17 36.6 C 89 23 H 156/81 H 97 - Problem List & Annotations (1) Dehydration SNOMED Code(s): 29857777 Code(s): E86.0 - DEHYDRATION Status: Acute Current Visit: Yes (2) Rhabdomyolysis SNOMED Code(s): 368177895 Code(s): M62.82 - RHABDOMYOLYSIS Status: Acute Current Visit: Yes (3) Sepsis SNOMED Code(s): 53449276 Code(s): A41.9 - SEPSIS, UNSPECIFIED ORGANISM Status: Acute Current Visit: Yes (4) UTI (urinary tract infection) SNOMED Code(s): 90577737 Code(s): N39.0 - URINARY TRACT INFECTION, SITE NOT SPECIFIED Status: Acute Current Visit: Yes Qualifiers: Urinary tract infection type: acute cystitis Hematuria presence: without hematuria Qualified Code(s): N30.00 - Acute cystitis without hematuria (5) Acute urinary retention SNOMED Code(s): 911144166 Code(s): R33.8 - OTHER RETENTION OF URINE Status: Acute Current Visit: No (6) Dehydration, mild SNOMED Code(s): 0803399754628 Code(s): E86.0 - DEHYDRATION Status: Acute Current Visit: No (7) Inspiratory stridor SNOMED Code(s): 74071730 Status: Acute Current Visit: No (8) Renal insufficiency, mild SNOMED Code(s): 870410296 Code(s): N28.9 - DISORDER OF KIDNEY AND URETER, UNSPECIFIED Status: Acute Current Visit: No (9) Failure to thrive SNOMED Code(s): 48913014 Code(s): DOD4187 - Status: Acute Current Visit: Yes (10) Palliative care status SNOMED Code(s): 978114809 Code(s): Z51.5 - ENCOUNTER FOR PALLIATIVE CARE Status: Acute Current Visit: Yes (11) End of life care SNOMED Code(s): 072808307, 322916842 Code(s): Z51.5 - ENCOUNTER FOR PALLIATIVE CARE Status: Acute Current Visit: Yes (12) Unable to eat SNOMED Code(s): 923191517 Code(s): R63.8 - OTHER SYMPTOMS AND SIGNS CONCERNING FOOD AND FLUID INTAKE Status: Acute Current Visit: Yes - Problem List Review Problem List Initiated/Reviewed/Updated: Yes - My Orders Last 24 Hours: My Active Orders 10/08/21 09:32 Consult to Case Management/Roving Department Supervisor [CONS] Routine 10/08/21 13:14 Resuscitation Status Routine 10/08/21 13:20 Consult to Hospice [CONS] Routine 10/08/21 14:18 Morphine 1 mg IVPUSH Q3H PRN 10/08/21 14:19 LORazepam [Ativan] 1 mg IVPUSH Q2H PRN 10/08/21 18:00 Dextrose 5%-0.45% NaCl [Dextrose 5%-1/2 NS] 1,000 ml IV Q10H - Plan Plan:: 80 yo male admitted after being found down. Admitted for UTI and encephalopathy I have discussed goals of care in detail with family at bedside including patient's son and daughter. They have requested to make the patient DNR/DNI and comfort care/hospice measures. They are not interested in any aggressive treatment. They did want to continue IV fluids and IV antibiotics till they actually get to talk with hospice for further plan of care. Patient's family is interested in placing patient in hospice at a nursing facility as patient lives at home alone and I do not think is feasible for him to be home hospice. Hospice has been consulted waiting for further plan of care Continue IV morphine and IV Ativan in the meantime for comfort measures
[2021-10-09] MEDS ORDERED: LORazepam Conc Solution 2 MG/ML 30 ML Bottle SL PRN (14:03)
[2021-10-09] MEDS ORDERED: Morphine ORAL Concentrate 10MG/0.5ML U/D SL PRN (14:04)
[2021-10-09] MEDS: Morphine 10 MG/0.5 ML Oral Syringe SL PRN ×2 (14:27→19:59)
--- NOTE | 2021-10-09 18:05 | PCM.SN.2 ---
- Free Text/Narrative Note: I spoke with the family in detail again, they were interested in knowing about feeding tube and what that entails. I discussed in detail about the pros and cons of a feeding tube I explained to them that there is still a risk of reverse aspiration with feeding tube. I did offer them to talk to surgery and see if clarisse grider is a candidate for feeding tube, calorie count etc., I did explain to them that we will have to get speech therapy on board and see what a formal swallowing evaluation will show. Patient's family then decided to talk with the patient himself and see what his wishes were. Patient refused the feeding tube or any other aggressive intervention and expresses desire to be more comfortable rather than aggressive care. Family eventually decided to go ahead with a hospice and comfort care that was already established. They were okay with stopping IV fluid resuscitation and IV antibiotics as well. Given that patient has inability to eat, failure to thrive and poor prognosis overall patient and family has chosen comfort care/palliative option and will be coordinating with hospice eventually to [facility].
[2021-10-09] MEDS ORDERED: Scopolamine 1.5 MG Transdermal Patch TRDERM PRN (20:57)
[2021-10-09 23:10] VITALS: BP 132/73; PULSE 101
[2021-10-10] MEDS: Morphine 10 MG/0.5 ML Oral Syringe SL PRN ×2 (01:25→04:44)
[2021-10-10] MEDS: Heparin Sodium 5,000 Units/ML Vial SUBCUT SCH (03:21)
--- NOTE | 2021-10-10 12:31 | PCM.DCSUM1 ---
Discharge Summary - Discharge Data Discharge Date: 10/10/21 Discharge Disposition: DC/Tfer to Hospice - Home 49 Condition: - Referral to Home Health Primary Care Physician: Miguel Sanches MD - Discharge Diagnosis/Problem(s) (1) Dehydration SNOMED Code(s): 91990164 ICD Code: E86.0 - DEHYDRATION Status: Acute (2) Rhabdomyolysis SNOMED Code(s): 090194589 ICD Code: M62.82 - RHABDOMYOLYSIS Status: Acute (3) Sepsis SNOMED Code(s): 60584964 ICD Code: A41.9 - SEPSIS, UNSPECIFIED ORGANISM Status: Acute (4) UTI (urinary tract infection) SNOMED Code(s): 14602933 ICD Code: N39.0 - URINARY TRACT INFECTION, SITE NOT SPECIFIED Status: Acute Qualifiers: Urinary tract infection type: acute cystitis Hematuria presence: without hematuria Qualified Code(s): N30.00 - Acute cystitis without hematuria (5) Renal insufficiency, mild SNOMED Code(s): 134081370 ICD Code: N28.9 - DISORDER OF KIDNEY AND URETER, UNSPECIFIED Status: Acute (6) Encephalopathy acute SNOMED Code(s): 18665092, 040187054 ICD Code: G93.40 - ENCEPHALOPATHY, UNSPECIFIED Status: Acute (7) Elevated troponin SNOMED Code(s): 039115592, 470762545, 303205825 ICD Code: R77.8 - OTHER SPECIFIED ABNORMALITIES OF PLASMA PROTEINS Status: Acute (8) Dysphagia SNOMED Code(s): 24562574, 379281709 ICD Code: R13.10 - DYSPHAGIA, UNSPECIFIED Status: Acute (9) Hx of laryngeal cancer SNOMED Code(s): 863016554, 419844897 ICD Code: Z85.21 - PERSONAL HISTORY OF MALIGNANT NEOPLASM OF LARYNX Status: Acute (10) Proteus mirabilis infection SNOMED Code(s): 48121473 ICD Code: A49.8 - OTHER BACTERIAL INFECTIONS OF UNSPECIFIED SITE Status: Acute - Patient Summary/Data Consults: Consultations 10/06/21 19:48 PT Evaluation and Treatment [CONS] Routine OIL SPRAYER Evaluation and Treatment [CONS] Routine 10/08/21 09:32 Consult to Case Management/Design Studio Consultant [CONS] Routine 10/08/21 13:20 Consult to Hospice [CONS] Routine Hospital Course: 80 yo male with pmh of CKD, hypothyrodism, BPH who was found down at home for an uncertain period of time. He was admitted for UTI, dehydration, rhabdomylysis, and elevated troponin. He was hydrated with IV fluids. He continued to have difficulty with generalized weakness and poor oral apatite. Patient and family was not wanting aggressive treatments such as feeding tube so patient was made palliative care. Comfort measures were placed and Patient with family present. - Discharge Plan Home Medications: Home Meds Dicyclomine [Bentyl] 10 mg PO DAILY 10/06/21 [History] Levothyroxine Sodium [Levothyroxine] 75 mcg PO DAILY 10/06/21 [History] Tamsulosin HCl 0.4 mg PO DAILY 10/06/21 [History] Forms: ED Department Discharge Referrals: Miguel Sanches MD [Primary Care Provider] - - Discharge Summary/Plan Comment DC Time >30 min.: No Total # of Minutes for Discharge Time: 15 - Patient Data Vitals - Most Recent: Last Vital Signs Temp 36.7 C 10/09/21 20:00 Pulse 101 H 10/09/21 20:00 Resp 25 H 10/09/21 20:00 BP 132/73 10/09/21 20:00 Pulse Ox 87 L 10/09/21 20:00 Weight - Most Recent: 52.5 kg I&O - Last 24 hours: Intake & Output 10/09/21 10/10/21 10/10/21 22:59 06:59 14:59 Intake Total 0 Output Total 1700 250 Balance -1700 -250 Lab Results - Last 24 hrs: Laboratory Results - last 24 hr 10/09/21 10/09/21 Range/Units 11:53 16:28 POC Glucose 124 H 106 H (70-99) mg/dL GEMINI Results - Last 24 hrs: Microbiology 10/06/21 14:50 Urine Culture - Final Urine Proteus Mirabilis 10/06/21 13:01 Aerobic Blood Culture - Preliminary Blood - Venous NO GROWTH AFTER 3 DAYS Anaerobic Blood Culture - Final 10/06/21 13:10 Aerobic Blood Culture - Preliminary Blood - Venous - Lab Draw NO GROWTH AFTER 3 DAYS Anaerobic Blood Culture - Final Med Orders - Current: Current Medications Discontinued Medications Albuterol/Ipratropium (Albuterol/Ipratropium 3.0-0.5 Mg/3 Ml Neb Soln) 3 ml NEB Q4HRRT PRN PRN Reason: Wheezing Last Admin: 10/08/21 03:37 Dose: 3 ml Documented by: Aspirin (Aspirin 81 Mg Tab.Chew) 81 mg PO DAILY [facility] Last Admin: 10/08/21 10:38 Dose: Not Given Documented by: Atorvastatin Calcium (Atorvastatin 40 Mg Tab) 40 mg PO BEDTIME [facility] Last Admin: 10/07/21 21:06 Dose: Not Given Documented by: Docusate Sodium (Docusate Sodium 100 Mg Cap) 100 mg PO BID [facility] Last Admin: 10/08/21 10:38 Dose: Not Given Documented by: Heparin Sodium (Porcine) (Heparin Sodium 5,000 Units/Ml Vial) 5,000 units SUBCUT Q8H [facility] Last Admin: 10/10/21 03:21 Dose: Not Given Documented by: Sodium Chloride (Normal Saline) 1,000 mls @ 1,000 mls/hr IV .Bolus ONE Stop: 10/06/21 13:47 Last Admin: 10/06/21 13:50 Dose: 1,000 mls/hr Documented by: Ceftriaxone Sodium/Dextrose 1 (gm/ Premix) 50 mls @ 100 mls/hr IV ONETIME ONE Stop: 10/06/21 14:40 Last Admin: 10/06/21 14:28 Dose: 100 mls/hr Documented by: Sodium Chloride (Normal Saline) 1,000 mls @ 1,000 mls/hr IV .Bolus ONE Stop: 10/06/21 15:10 Last Admin: 10/06/21 14:33 Dose: 1,000 mls/hr Documented by: Sodium Chloride (Normal Saline) 1,000 mls @ 500 mls/hr IV BOLUS ONE Stop: 10/06/21 16:11 Last Admin: 10/06/21 14:29 Dose: 500 mls/hr Documented by: Sodium Chloride (Normal Saline) 1,000 mls @ 125 mls/hr IV ASDIRECTED [facility] Last Admin: 10/07/21 11:33 Dose: 125 mls/hr Documented by: Ceftriaxone Sodium/Dextrose 1 (gm/ Premix) 50 mls @ 100 mls/hr IV Q24H [facility] Last Admin: 10/08/21 13:53 Dose: 100 mls/hr Documented by: Dextrose/Lactated Ringer's (Dextrose 5%-Lactated Ringers) 1,000 mls @ 100 mls/hr IV Q10H [facility] Last Admin: 10/08/21 13:17 Dose: Not Given Documented by: Dextrose/Sodium Chloride (Dextrose 5%-1/2 Ns) 1,000 mls @ 100 mls/hr IV Q10H [facility] Last Admin: 10/09/21 05:12 Dose: Not Given Documented by: Potassium Chloride/Dextrose/Sod Cl (D5 1/2 Ns W/ 40 Meq/L Kcl) 1,000 mls @ 125 mls/hr IV ASDIRECTED [facility] Stop: 10/08/21 17:29 Last Admin: 10/08/21 15:30 Dose: 125 mls/hr Documented by: Levothyroxine Sodium (Levothyroxine 75 Mcg Tab) 75 mcg PO ACBREAKFAST [facility] Last Admin: 10/08/21 06:32 Dose: Not Given Documented by: Lorazepam (Lorazepam 2 Mg/Ml Sdv) 1 mg IVPUSH Q2H PRN PRN Reason: Other Lorazepam (Lorazepam Conc Solution 2 Mg/Ml 30 Ml Bottle) 1 mg SL Q2H PRN PRN Reason: AGITATION Last Admin: 10/09/21 16:58 Dose: 1 mg Documented by: Morphine Sulfate (Morphine 2 Mg/Ml Syringe) 1 mg IVPUSH Q3H PRN PRN Reason: Other Last Admin: 10/08/21 21:34 Dose: 1 mg Documented by: Morphine Sulfate (Morphine Oral Concentrate 10mg/0.5ml U/D) 2.5 mg SL Q3H PRN PRN Reason: AIR HUNGER/PAIN Morphine Sulfate (Morphine 10 Mg/0.5 Ml Oral Syringe) 2.5 mg SL Q3H PRN PRN Reason: AIR HUNGER/PAIN Last Admin: 10/10/21 04:44 Dose: 2.5 mg Documented by: Scopolamine (Scopolamine 1.5 Mg Transdermal Patch) 1.5 mg TRDERM Q72H PRN PRN Reason: secreations Sodium Chloride (Sodium Chloride 0.9% 10 Ml Syringe) 10 ml FLUSH ASDIRECTED PRN PRN Reason: Keep Vein Open Last Admin: 10/06/21 13:50 Dose: 10 ml Documented by: Sodium Chloride (Sodium Chloride 0.9% 2.5 Ml Syringe) 2.5 ml FLUSH ASDIRECTED PRN PRN Reason: Keep Vein Open Last Admin: 10/06/21 13:51 Dose: 2.5 ml Documented by: Tamsulosin HCl (Tamsulosin 0.4 Mg Cap.Er) 0.4 mg PO DAILY [facility] Last Admin: 10/08/21 10:38 Dose: Not Given Documented by:
== END 2021-10-10 10:28 | disposition expired | DRG 871 ==
LOC: MW.ED 12:39 → MW.MS 16:31
PROVIDERS: ADMIT Internal Medicine; ATTEND Internal Medicine
DX: A41.9 Sepsis, unspecified organism (principal); G93.41 Metabolic encephalopathy; N30.00 Acute cystitis without hematuria; M62.82 Rhabdomyolysis; Z68.1 Body mass index [BMI] 19.9 or less, adult; F05 Delirium due to known physiological condition; E86.0 Dehydration; R77.8 Other specified abnormalities of plasma proteins; R13.10 Dysphagia, unspecified; N18.9 Chronic kidney disease, unspecified; Z66 Do not resuscitate; Z20.822 Contact with and (suspected) exposure to COVID-19; E03.9 Hypothyroidism, unspecified; N40.1 Benign prostatic hyperplasia with lower urinary tract symptoms; R33.8 Other retention of urine; R63.8 Other symptoms and signs concerning food and fluid intake; R62.7 Adult failure to thrive; R06.1 Stridor; S00.93XA Contusion of unspecified part of head, initial encounter; L89.896 Pressure-induced deep tissue damage of other site; K21.9 Gastro-esophageal reflux disease without esophagitis; Z87.442 Personal history of urinary calculi; Z85.21 Personal history of malignant neoplasm of larynx; Z51.5 Encounter for palliative care; Z88.8 Allergy status to other drugs, medicaments and biological substances; Z79.890 Hormone replacement therapy; Z79.899 Other long term (current) drug therapy; Z97.3 Presence of spectacles and contact lenses; Z92.21 Personal history of antineoplastic chemotherapy; Z92.3 Personal history of irradiation; W19.XXXA Unspecified fall, initial encounter; Y92.002 Bathroom of unspecified non-institutional (private) residence as the place of occurrence of the external cause
CPT/HCPCS: 36415; 51702; 70450; 70486; 71045; 72125; 72170; 74176; 80053; 81001; 82550 ×2; 83605 ×2; 83690; 83735; 83880; 84443; 84484 ×2; 85025; 85610; 85652; 87040 ×2; 87086; 87088; 87186; 93005; 96365; 99291; J0696; J7030 ×3; U0002; 80048; 82947; 84100; 93010; 97161-GP; 99223; 99232; 99238; A9270-GY; J1644; J2270; J3480; J7042; J7121; J7620-GY